=== PATIENT | female | born 1935 ===

== ENCOUNTER 2021-03-13 08:27 | Outpatient (REF) | payer MEDICARE, SELFPAY ==
--- NOTE | ~2021-03-13 | US_ITS ---
EXAMINATION: US EXTRACRANIAL CAROTID DUPLEX, BILATERAL CLINICAL INFORMATION: This is an 85-year-old female with carotid bruit. Carotid artery disease. COMPARISON: None TECHNIQUE: Real-time ultrasound and Doppler techniques (integrating B-mode 2-D vascular images, Doppler spectral analysis and color-flow Doppler imaging) were utilized to interrogate the extracranial carotid arteries, the vertebral arteries and proximal subclavian arteries bilaterally. The degree of stenosis is determined by criteria similar to NASCET. FINDINGS: Right Side: 1. There is minimal atherosclerotic plaque seen in the bifurcation/proximal ICA region. 2. The common carotid artery PSV proximally is 99 cm/s and distally 75 cm/s. 3. The proximal internal carotid artery velocities are 70 cm/s systolic and 23 cm/s diastolic. 4. The proximal external carotid artery PSV is 141 cm/s. 5. The vertebral artery shows antegrade flow. 6. The subclavian artery waveforms are normal. Left Side: 1. There is minimal atherosclerotic plaque seen in the bifurcation/proximal ICA region. 2. The common carotid artery PSV proximally is 86 cm/s and distally 78 cm/s. 3. The proximal internal carotid artery velocities are 52 cm/s systolic and 16 cm/s diastolic. 4. The proximal external carotid artery PSV is 98 cm/s. 5. The vertebral artery shows antegrade flow. 6. The subclavian artery waveforms are normal. An arrhythmia was present during the duplex portion of the study. US/US carotid duplex BI IMPRESSION: 1. RIGHT: Minimal, non-hemodynamically significant stenosis of the proximal right internal carotid artery corresponding to a 0-49% stenosis by velocity criteria. 2. LEFT: Minimal, non-hemodynamically significant stenosis of the proximal left internal carotid artery corresponding to a 0-49% stenosis by velocity criteria. 3. An arrhythmia was present during the duplex portion of the study.
== END 2021-03-13 08:28 | disposition home or self-care (01) ==
LOC: HO.HMGCX 08:27
PROVIDERS: PCP Internal Medicine; Visit Provider Internal Medicine
DX: R09.89 Other specified symptoms and signs involving the circulatory and respiratory systems (principal)
CPT/HCPCS: 93880

== ENCOUNTER 2021-09-18 07:55 | Outpatient (REF) | payer MEDICARE, MEDICAID, SELFPAY ==
[2021-09-18 11:42] LABS: Appearance Urine CLEAR; Color Urine YELLOW; Glucose Urine UA NEG (NEG); Leukocyte Esterase Urine TRACE (NEG); Nitrite Urine NEG (NEG); PH 5.5 (5.0-8.0); Specific Gravity - Urine >= 1.030 (1.005-1.025); Urine Blood NEG (NEG); Urine Ketones NEG (NEG); Urine Protein NEG (NEG-TRACE)
[2021-09-18 11:56] LABS: Squamous Epithelial Cell Urine 1+ /LPF
[2021-09-18 11:57] LABS: Bacteria Urine TRACE /LPF; Mucus Urine TRACE /LPF
== END 2021-09-18 07:56 | disposition home or self-care (01) ==
LOC: HO.HMGCLDS 07:55
PROVIDERS: PCP Internal Medicine; Visit Provider Nurse Practitioner Family
DX: R10.9 Unspecified abdominal pain (principal)
CPT/HCPCS: 81001; 87086

== ENCOUNTER 2021-10-11 15:10 | Outpatient (REF) | payer MEDICARE, MEDICAID, SELFPAY ==
[2021-10-11 16:50] LABS: Appearance Urine CLEAR; Color Urine YELLOW; Glucose Urine UA NEG (NEG); Leukocyte Esterase Urine 2+ (NEG); Nitrite Urine NEG (NEG); Specific Gravity - Urine 1.015 (1.005-1.025); UACC Culture Trigger YES; Urine Blood NEG (NEG); Urine Ketones NEG (NEG); Urine Protein NEG (NEG-TRACE)
[2021-10-11 16:58] LABS: Bacteria Urine 1+ /LPF; RBC Urine 0 /HPF (0); Squamous Epithelial Cell Urine 1+ /LPF
[2021-10-11 17:14] LABS: Alanine Aminotransferase 16 U/L (0-31); Alkaline Phosphatase 88 U/L (39-117); Anion Gap 12 (12-20); Aspartate Amino Transferase 23 U/L (5-31); Bilirubin Total 0.4 mg/dL (0.0-1.0); Blood Urea Nitrogen 35 mg/dL (9-16); Carbon Dioxide 29 mmol/L (22-29); Chloride 104 mmol/L (96-108); Estimated Glomerular Filt Rate 37; Glucose Random 98 mg/dL (60-115); Potassium 3.7 mmol/L (3.3-5.1); Sodium 141 mmol/L (135-145); Total Protein 7.1 g/dL (6.5-8.0)
== END 2021-10-11 15:11 | disposition home or self-care (01) ==
LOC: HO.HMGCLDS 15:10
PROVIDERS: PCP Internal Medicine; Visit Provider Internal Medicine
DX: I12.9 Hypertensive chronic kidney disease with stage 1 through stage 4 chronic kidney disease, or unspecified chronic kidney disease (principal); N18.30 Chronic kidney disease, stage 3 unspecified; R30.0 Dysuria
CPT/HCPCS: 36415; 80053; 81001; 87086

== ENCOUNTER 2021-11-28 14:26 | Outpatient (REF) | payer MEDICARE, MEDICAID, SELFPAY ==
--- NOTE | ~2021-11-28 | XR_ITS ---
EXAMINATION: XR HAND, RIGHT XR HAND, LEFT CLINICAL INFORMATION: Bilateral hand pain. COMPARISON: None TECHNIQUE: Each hand is imaged in 3 views. There are total of 6 views. FINDINGS: Right: There is no fracture, dislocation, destructive process. The ulnar variance is neutral. The carpus shows prominent osteoarthritic changes first carpometacarpal joint. There is chondrocalcinosis in the region of the triangular fibrocartilage and lunotriquetral ligament. No erosive changes. MCP joints show narrowing without erosive change first, second, third, and fifth joints with osteophytes. Hyperextension present at thumb. Periarticular soft tissue mineralization radial side second MTP. The interphalangeal joints show osteoarthritic changes greatest index finger DIP and index and third finger PIP joints. Left: There is no fracture, dislocation, destructive process. The ulnar variance is neutral. The carpus shows prominent osteoarthritic changes first carpometacarpal joint. There is chondrocalcinosis in the region of the triangular fibrocartilage and lunotriquetral ligament. No erosive changes. MCP joints show narrowing without erosive change first, second, third, and fifth joints with osteophytes. Hyperextension present at thumb. Periarticular soft tissue mineralization radial side second MTP. The interphalangeal joints show osteoarthritic changes greatest index and third finger DIP joint and moderate degenerative change PIP joints.. XR/XR hand RT min 3V IMPRESSION: 1. Bilateral chondrocalcinosis triangular fibrocartilage and lunotriquetral ligament. 2. Bilateral prominent osteoarthritic changes first carpometacarpal joint. 3. Variable degenerative changes bilateral MCP and interphalangeal joints.
--- NOTE | ~2021-11-28 | XR_ITS ---
EXAMINATION: XR HAND, RIGHT XR HAND, LEFT CLINICAL INFORMATION: Bilateral hand pain. COMPARISON: None TECHNIQUE: Each hand is imaged in 3 views. There are total of 6 views. FINDINGS: Right: There is no fracture, dislocation, destructive process. The ulnar variance is neutral. The carpus shows prominent osteoarthritic changes first carpometacarpal joint. There is chondrocalcinosis in the region of the triangular fibrocartilage and lunotriquetral ligament. No erosive changes. MCP joints show narrowing without erosive change first, second, third, and fifth joints with osteophytes. Hyperextension present at thumb. Periarticular soft tissue mineralization radial side second MTP. The interphalangeal joints show osteoarthritic changes greatest index finger DIP and index and third finger PIP joints. Left: There is no fracture, dislocation, destructive process. The ulnar variance is neutral. The carpus shows prominent osteoarthritic changes first carpometacarpal joint. There is chondrocalcinosis in the region of the triangular fibrocartilage and lunotriquetral ligament. No erosive changes. MCP joints show narrowing without erosive change first, second, third, and fifth joints with osteophytes. Hyperextension present at thumb. Periarticular soft tissue mineralization radial side second MTP. The interphalangeal joints show osteoarthritic changes greatest index and third finger DIP joint and moderate degenerative change PIP joints.. XR/XR hand LT min 3V IMPRESSION: 1. Bilateral chondrocalcinosis triangular fibrocartilage and lunotriquetral ligament. 2. Bilateral prominent osteoarthritic changes first carpometacarpal joint. 3. Variable degenerative changes bilateral MCP and interphalangeal joints.
== END 2021-11-28 14:27 | disposition home or self-care (01) ==
LOC: HO.HMGCX 14:26
PROVIDERS: PCP Internal Medicine; Visit Provider Internal Medicine
DX: M79.641 Pain in right hand (principal); M79.642 Pain in left hand
CPT/HCPCS: 73130

== ENCOUNTER 2022-01-31 11:23 | Outpatient (REF) | payer MEDICARE, MEDICAID, SELFPAY ==
--- NOTE | 2022-01-31 11:27 | EMG_ITS ---
This is an 86-year-old woman with a history of bilateral hand numbness. PHYSICAL EXAMINATION: On examination, she has flattening of the thenar eminences and decreased sensation in the median nerve distribution. IMPRESSION: Carpal tunnel syndrome. Nerve conduction EMG study: Severe carpal tunnel syndrome on the left. [id number] carpal tunnel syndrome on the right. EMG of the left C7-T1 innervated muscles consistent with chronic left median neuropathy. MD JACY Perez/DENIA / [id number]
== END 2022-01-31 11:24 | disposition home or self-care (01) ==
LOC: HO.NEURO 11:23
PROVIDERS: PCP Internal Medicine; Visit Provider Internal Medicine
DX: M79.641 Pain in right hand (principal); M79.642 Pain in left hand
CPT/HCPCS: 95885; 95913

== ENCOUNTER → 2022-04-01 11:55 | Outpatient (BNVA) | payer MEDICARE, MEDICAID, SELFPAY | PROVIDERS: PCP Internal Medicine; Visit Provider Orthopaedic Surgery | DX: G56.03 Carpal tunnel syndrome, bilateral upper limbs (principal) | CPT/HCPCS: 99202 ==

== ENCOUNTER 2022-06-23 07:52 | Day surgery (SDC) | payer OTHER, MEDICAID, SELFPAY ==
[2022-06-23 08:16] VITALS: BP 140/58; PULSE 60; RESP 18; TEMP 36.6; O2SAT 98; BMI 35.9
--- NOTE | 2022-06-23 09:34 | MHC.SHP ---
Pre-Procedural Eval Section A Date of Service: 06/23/22 The patient is an INPATIENT: No Changes since office visit: No Cold of Flu in the past 2 weeks, No New Medical Problems, No Changes in Medication and No Patient answered all questions The History & Physical has been completed within 30 days and I have reviewed it.: Yes Section B Chief Complaint: Carpal tunnel syndrome, left upper limb Allergies: Allergies Allergy/AdvReac Type Severity Reaction Status Date / Time aspirin Allergy Unknown unknown Verified 04/01/22 12:25 Plan I have reviewed the history and physical and performed a pertinent physical examination on my patient. No changes have occurred unless specified.
--- NOTE | 2022-06-23 09:35 | W.PM.OPN ---
Operative Note Operative Note Date of Service: 06/23/22 Narrative: Preop diagnosis: 1. left Carpal tunnel syndrome Postop diagnosis: same Procedure: 1. left Carpal tunnel release Surgeon: Nuvia Van MD Anesthesia: local block using 1% lidocaine with epinephrine Findings: Thickened transverse carpal ligament. EBL: Less than 5 mL Specimens: None Complications: None Disposition: Brought to recovery room in stable condition Plan: Follow-up for 10-14 days for wound check and suture removal Indications: The patient is 86 years old, with left carpal tunnel syndrome that has been unresponsive to nonoperative management. The risks and benefits of operative treatment including but not limited to risk of damage to blood vessels, nerves, tendons, infection, persistent pain, persistent symptoms, or possible need for additional surgery were discussed with the patient and the patient wishes to proceed with surgery. Procedure: Once consent was obtained a local block was performed using a combination of 1% lidocaine with epinephrine. The patient was then brought back to the operating suite and placed on the operative table in supine position. A tourniquet was applied to the proximal aspect of the left upper extremity and the limb was prepped and draped in a standard surgical fashion. Once assured that we had a good block, a 2.0 cm longitudinal incision was made centered over the carpal tunnel. The incision was made through the skin to the subcutaneous tissues using a #15 blade. Dissection was made down to the level of the transverse carpal ligament with care being taken to protect the palmar cutaneous nerve. Once the transverse carpal ligament was clearly visualized, a longitudinal incision was made in the transverse carpal ligament 1st using a #15 blade, then using tenotomy scissors under direct visualization. Care was taken to look for and protect the motor branch of the median nerve when seen in this area. Once satisfied with our carpal tunnel release the wound was copiously irrigated with normal saline and hemostasis was obtained with a brief period of local pressure. The skin edges were reapproximated with some 5.0 nylon suture material and a sterile dressing was applied. The patient appears to have tolerated the procedure well and with no complications. All digits were well vascularized at the conclusion of the case.
[2022-06-23 10:38] VITALS: BP 138/83; PULSE 51; RESP 18; TEMP 36.7; O2SAT 98
== END 2022-06-23 10:41 ==
LOC: HO.SSS 07:52
PROVIDERS: PCP Internal Medicine; Visit Provider Orthopaedic Surgery
PROC: (CPT 64721; principal; 2022-06-23 09:10)
DX: G56.02 Carpal tunnel syndrome, left upper limb (principal); R20.0 Anesthesia of skin; I12.9 Hypertensive chronic kidney disease with stage 1 through stage 4 chronic kidney disease, or unspecified chronic kidney disease; N18.30 Chronic kidney disease, stage 3 unspecified; E78.5 Hyperlipidemia, unspecified; R09.89 Other specified symptoms and signs involving the circulatory and respiratory systems; E55.9 Vitamin D deficiency, unspecified; R42 Dizziness and giddiness; Z79.899 Other long term (current) drug therapy; Z88.8 Allergy status to other drugs, medicaments and biological substances; Z96.659 Presence of unspecified artificial knee joint
CPT/HCPCS: 64721; J0171

== ENCOUNTER 2022-09-15 10:13 | Day surgery (SDC) | payer OTHER, SELFPAY ==
--- NOTE | 2022-09-15 08:02 | W.PM.OPN ---
Operative Note Operative Note Date of Service: 09/15/22 Narrative: Preop diagnosis: 1. right Carpal tunnel syndrome Postop diagnosis: same Procedure: 1. right Carpal tunnel release Surgeon: Nuvia Van MD Anesthesia: local block using 1% lidocaine with epinephrine Findings: Thickened transverse carpal ligament. EBL: Less than 5 mL Specimens: None Complications: None Disposition: Brought to recovery room in stable condition Plan: Follow-up for 10-14 days for wound check and suture removal Indications: The patient is 87 years old, with right carpal tunnel syndrome that has been unresponsive to nonoperative management. The risks and benefits of operative treatment including but not limited to risk of damage to blood vessels, nerves, tendons, infection, persistent pain, persistent symptoms, or possible need for additional surgery were discussed with the patient and the patient wishes to proceed with surgery. Procedure: Once consent was obtained a local block was performed using a combination of 1% lidocaine with epinephrine. The patient was then brought back to the operating suite and placed on the operative table in supine position. A tourniquet was applied to the proximal aspect of the right upper extremity and the limb was prepped and draped in a standard surgical fashion. Once assured that we had a good block, a 2.0 cm longitudinal incision was made centered over the carpal tunnel. The incision was made through the skin to the subcutaneous tissues using a #15 blade. Dissection was made down to the level of the transverse carpal ligament with care being taken to protect the palmar cutaneous nerve. Once the transverse carpal ligament was clearly visualized, a longitudinal incision was made in the transverse carpal ligament 1st using a #15 blade, then using tenotomy scissors under direct visualization. Care was taken to look for and protect the motor branch of the median nerve when seen in this area. Once satisfied with our carpal tunnel release the wound was copiously irrigated with normal saline and hemostasis was obtained with a brief period of local pressure. The skin edges were reapproximated with some 5.0 nylon suture material and a sterile dressing was applied. The patient appears to have tolerated the procedure well and with no complications. All digits were well vascularized at the conclusion of the case.
[2022-09-15 10:23] VITALS: BMI 36.1
[2022-09-15 10:30] VITALS: BP 161/56; PULSE 53; RESP 16; TEMP 36.3; O2SAT 100
--- NOTE | 2022-09-15 11:17 | MHC.SHP ---
Pre-Procedural Eval Section A Date of Service: 09/15/22 The patient is an INPATIENT: No Changes since office visit: No Cold of Flu in the past 2 weeks, No New Medical Problems, No Changes in Medication and No Patient answered all questions The History & Physical has been completed within 30 days and I have reviewed it.: Yes Section B Chief Complaint: Carpal tunnel syndrome, right upper limb Allergies: Allergies Allergy/AdvReac Type Severity Reaction Status Date / Time aspirin Allergy Unknown unknown Verified 09/15/22 10:23 Plan I have reviewed the history and physical and performed a pertinent physical examination on my patient. No changes have occurred unless specified.
[2022-09-15 12:04] VITALS: BP 148/69; PULSE 86; RESP 18; O2SAT 96
== END 2022-09-15 12:19 | disposition home or self-care (01) ==
PROVIDERS: PCP Internal Medicine; Visit Provider Orthopaedic Surgery
PROC: (CPT 64721; principal; 2022-09-15 11:10)
DX: G56.01 Carpal tunnel syndrome, right upper limb (principal); I12.9 Hypertensive chronic kidney disease with stage 1 through stage 4 chronic kidney disease, or unspecified chronic kidney disease; N18.30 Chronic kidney disease, stage 3 unspecified; E78.5 Hyperlipidemia, unspecified; R42 Dizziness and giddiness; E55.9 Vitamin D deficiency, unspecified
CPT/HCPCS: 64721; J0171

== ENCOUNTER 2023-10-29 08:10 | Outpatient (AMB) | payer OTHER, SELFPAY ==
--- NOTE | 2023-10-29 08:28 | MHC.PC.OV ---
Vital Signs 10/29/23 08:29 Height 5 ft Weight 189 lb BMI 36.9 BP 126/72 Blood Pressure Location Lt brachial Position Sitting Pulse 64 Pulse Source Pulse Oximeter Pulse Oximetry (%) 95 Oxygen Delivery Method Room Air Intake Visit Reasons: Annual Physical Intake Note: Pt is here today for PE. Allergies aspirin Allergy (Unknown, Verified 10/29/23 08:36) Facial Swelling Medication List - Last Reconciled 10/29/23 by Penny Orellana MD glucosamine HCl 1,000 mg PO DAILY hydrochlorothiazide 25 mg PO DAILY hydrocodone-acetaminophen 5-325 mg 1 tab PO Q4-6H PRN irbesartan 300 mg PO DAILY meclizine 25 mg PO BID meloxicam 7.5 mg PO BID metoprolol succinate ER 100 mg PO DAILY oxybutynin chloride ER 5 mg PO DAILY Tobacco use date assessed: 10/29/23 Fall risk assessment: No Falls in past year Last assessed Fall Risk: 10/29/23 Dental Screening Dental Screen Date: 10/29/23 Did you have a dental visit in the last 12 months?: Yes Did you have a dental problem in the last 6 months where you did not have access to dental care?: No Was dental information given to patient?: Patient has dentist HPI Annual Physical HPI Details Patient presents for physical. Hypertension is controlled on current medications. Patient reports left shorter pain on and off and decreased range of motion for the last few months. She denies any injury. Patient is sitting for few hours daily in the armchair, supporting herself on the left arm. [facility] Medical History (Updated 10/29/23 @ 09:00 by Penny Orellana MD) Bilateral hand pain Dysuria CKD (chronic kidney disease) stage 3, GFR 30-59 ml/min Bilateral carotid bruits Subconjunctival bleed Vertigo HTN (hypertension) Osteoarthritis Hyperlipidemia Vitamin D deficiency Hyperparathyroidism Goiter Surgical History H/O parathyroidectomy History of knee replacement Family History Father No problems noted. Mother No problems noted. Social History Housing: House Alcohol intake: never Patient Tobacco Use Status: Never used Tobacco e-Cigarette/Vaping Use: Never Used Current occupational status: retired Cognitive needs: No Hearing needs: No Vision needs: Yes Questionnaire PHQ-9 Over the last 2 weeks, how often have you been bothered by any of the following problems? 1. Little interest or pleasure in doing things: not at all 2. Feeling down, depressed, or hopeless: not at all 3. Trouble falling or staying asleep, or sleeping too much: not at all 4. Feeling tired or having little energy: not at all 5. Poor appetite or overeating: not at all 6. Feeling bad about yourself - or that you are a failure or have let yourself or your family down: not at all 7. Trouble concentrating on things, such as reading the newspaper or watching television: not at all 8. Moving or speaking so slowly that other people could have noticed. Or the opposite - being so fidgety or restless that you have been moving around a lot more than usual: not at all 9. Thoughts that you would be better off or of hurting yourself in some way: not at all Total score: 0 Depression Screening Interpretation: Negative Depression Screening Done: Yes Source: Developed by Drs. Cristian Patiño, Edwige Sanchez, Tyson Herman and colleagues, with an educational hemanth from [employer]. Thrive Questionnaire Date Thrive assessed: 10/29/23 I am a: Patient What is your living situation today?: I have a steady place to live Within the past 12 months, did the food you bought not last and you didn't have the money to get more?: Never true Within the past 12 months, did you worry whether your food would run out before you got money to buy more?: Never true Do you have trouble paying for medicines?: No Do you have trouble getting transportation to medical appointments?: No Do you have trouble paying your heating and electricity bill?: No Do you have trouble taking care of your child, family member or friend?: No Do you have trouble with day-to-day activities such as bathing, preparing meals, shopping, managing finances, etc.?: No Are you currently unemployed and looking for a job?: No Are you interested in more education?: No Please select the resources that you would like help with: None AUDIT C Alcohol Use Questionnaire (AUDIT-C) 1. How often do you have a drink containing alcohol?: Never 3. How often do you have six or more drinks on one occasion?: Never Total Score: 0 PAMELLA-7 AMB Questionnaire PAMELLA-7 Date PAMELLA - 7 assessed: 10/29/23 Feeling nervous, anxious, or on edge: 0 = Not at all Not being able to stop or control worryin = Not at all Worrying too much about different things: 0 = Not at all Trouble relaxin = Not at all Being so restless that it is hard to sit still: 0 = Not at all Becoming easily annoyed or irritable: 0 = Not at all Feeling afraid as if something awful might happen: 0 = Not at all Total PAMELLA-7 score (0-4 normal; 5-9 mild; 10-14 moderate; 15-21 severe): 0 Source: Developed by Drs. Cristian Patiño, Edwige Sanchez, Tyson Herman and colleagues, with an educational hemanth from [employer]. Review of Systems Const All systems reviewed & are unremarkable except as noted in HPI and below Reports no additional complaints Eyes Reports no additional complaints ENT Reports no additional complaints Card Reports no additional complaints Resp Reports no additional complaints GI Reports no additional complaints Reports no additional complaints Physical exam (Primary Care) Vital Signs: Last Vital Signs Pulse 64 10/29/23 08:29 BP 126/72 10/29/23 08:29 Pulse Ox 95 10/29/23 08:29 Oxygen Delivery Method Room Air 10/29/23 08:29 BMI result Body Mass Index 36.9 Tobacco/Smoking Status: Tobacco use Status Tobacco use date assessed 10/29/23 10/29/23 08:40 Patient Tobacco Use Status Never used Tobacco 10/29/23 08:40 e-Cigarette/Vaping Use Never Used 10/29/23 08:28 PHQ-9: PHQ-9 Score PHQ-9: Total score 0 10/29/23 08:43 Depression Screening Interpretation: Negative Thrive Assessment: Date of Thrive Assessment Date Thrive assessed 10/29/23 10/29/23 08:43 Const General: no acute distress HENMT Head: Yes normal to inspection Face and sinus: Yes normal facial exam Throat: Yes posterior oropharynx normal Eyes Visual Barfield: normal visual barfield by confrontation Neck Neck: Yes no lymphadenopathy and Yes supple Resp Effort & Inspection: normal respiratory effort Auscultation: clear to auscultation bilaterally Cardio Rhythm: regular rhythm Heart sounds: S1 normal heart sound present and S2 normal heart sound present GI Inspection: Yes normal to inspection Palpation (GI): Soft to palpation Percussion: Yes normal to percussion Auscultation: normal bowel sounds Extrem Other: 2+ nonpitting edema bilaterally in lower extremities, decreased range of motion and crepitus in the left shoulder Assessment and Plan Assessment & Plan (1) Shoulder pain, left: Code(s): M25.512 - Pain in left shoulder Plan: Refer for physical therapy (2) HTN (hypertension): Code(s): I10 - Essential (primary) hypertension Plan: Continue current medications (3) Hyperlipidemia: Code(s): E78.5 - Hyperlipidemia, unspecified Plan: Continue low-cholesterol diet, patient will return for fasting labs (4) Annual physical exam: Code(s): Z00.00 - Encounter for general adult medical examination without abnormal findings Plan: Well-balanced diet regular physical activity discussed with the patient (5) Vitamin D deficiency: Code(s): E55.9 - Vitamin D deficiency, unspecified Plan: Check vitamin-D level Orders: Orders TSH reflex Free T4 Today E78.5 - Hyperlipidemia, unspecified, I10 - Essential (primary) hypertension, Z00.00 - Encounter for general adult medical examination without abnormal findings Complete Blood Count Auto Diff Today E78.5 - Hyperlipidemia, unspecified, I10 - Essential (primary) hypertension, Z00.00 - Encounter for general adult medical examination without abnormal findings Lipid Panel Today E78.5 - Hyperlipidemia, unspecified, I10 - Essential (primary) hypertension, Z00.00 - Encounter for general adult medical examination without abnormal findings Comprehensive [place]. Panel Fast Today E78.5 - Hyperlipidemia, unspecified, I10 - Essential (primary) hypertension, Z00.00 - Encounter for general adult medical examination without abnormal findings PT Evaluation and Treatment Today E78.5 - Hyperlipidemia, unspecified, I10 - Essential (primary) hypertension, M25.512 - Pain in left shoulder, Z00.00 - Encounter for general adult medical examination without abnormal findings Vitamin D 25-OH Total Today E55.9 - Vitamin D deficiency, unspecified Medications: Discontinued hydrocodone-acetaminophen 5-325 mg Partial Fill upon patient request. Discontinued Reason: Doctor's Order 1 tab PO Q4-6H PRN 5 tabs 0RF pain Coding Level of Care Code Est Pt Prev Care >65y(01607) Diagnoses Shoulder pain, left M25.512 HTN (hypertension) I10 Hyperlipidemia E78.5 Annual physical exam Z00.00 Vitamin D deficiency E55.9
[2023-10-29 08:29] VITALS: BP 126/72; PULSE 64; O2SAT 95; BMI 36.9
== END 2023-10-29 09:07 | disposition home or self-care (01) ==
PROVIDERS: PCP Internal Medicine; Visit Provider Internal Medicine
DX: Z00.00 Encounter for general adult medical examination without abnormal findings (principal); M25.512 Pain in left shoulder; I10 Essential (primary) hypertension; E78.5 Hyperlipidemia, unspecified; E55.9 Vitamin D deficiency, unspecified
CPT/HCPCS: 99397

== ENCOUNTER 2023-10-31 07:19 | Outpatient (REF) | payer OTHER, SELFPAY | END 2023-10-31 07:20 | disposition home or self-care (01) | LOC: HO.HMGCLDS 07:19 | PROVIDERS: PCP Internal Medicine; Visit Provider Internal Medicine | DX: Z00.00 Encounter for general adult medical examination without abnormal findings (principal); E78.5 Hyperlipidemia, unspecified; I10 Essential (primary) hypertension; E55.9 Vitamin D deficiency, unspecified | CPT/HCPCS: 36415; 80053; 80061; 82306; 84439; 84443; 85025 ==

== ENCOUNTER 2023-11-12 12:46 | Outpatient (RCR) | payer OTHER, SELFPAY ==
--- NOTE | 2023-11-12 14:15 | MHC.PT.EP ---
[facility] [place] Office [place] Office [place] Office [address] Roger Savage [address] [phone] F: [phone] F: [phone] F: [phone] F: [phone] Physical Therapy Plan of Care Date of Evaluation: 11/12/23 Date of Surgery: Diagnosis: This is an 88 yo female presenting to skilled PT with a script for L shoulder pain. Assessment: This is an 88 yo female presenting to skilled PT with a script for L shoulder pain. Patient reporting L shoulder pain that has been increasing for about a year ago, no injury noted. She reports that she does not get pain at rest/only increases with movement or use. Pain is described as hard to lift. Patient is RHD, takes meloxicam for pain and has not had any imaging of the shoulder. She reports I with LB ADLs (adapts for UB using a bra that clasps in the front, using her R hand primarily and gets assist for harder UB tasks such as clasps on necklaces), makes her own breakfast and enjoys puzzle making, pippa, walking and going to the [facility] center for chair exercises 3x/wk. Assessment reveals pain that ranges from up to a 4/10 at the worst. Patient demos decreased L shoulder and cervical gross ROM, strength of B shoulder's, TTP at GHJ joint line, UT and impaired posture with forward head and rounded shoulders. Based on functional limitations, impaired QOL and pain tolerance patient is a good candidate for skilled PT 2x/wk for 4wks. Frequency and Duration: The patient will be seen 2x/wk for 4wks Short Term Goals: (In 2 weeks) Demo I with HEP Improve shoulder AROM by at least 10 degs Demo proper scapular recruitment with appropriate shoulder strengthening exercises Crew Lead Goals: (in 4 wks) Improve shoulder nonpainful AROM to almost near equal B Demo at least 1 grade improvement in MMT for shoulder Improve SPADI by at least 10 points Improve overall functional QOL by at least 50% Treatment Plan: Modalities to reduce pain, spasms and effusion. Manual therapy to restore motion and function. Therapeutic exercise to improve strength and flexibility. Neuromuscular re-education for posture and balance. Therapeutic activities to return to functional activities of daily living. Electronically signed by: Anya Mcguire PT Please sign and return to therapist. Thank you for your referral.
--- NOTE | 2023-12-17 12:51 | MHC.PT.DC ---
[facility] [place] Office [place] Office [place] Office [address] Roger Savage [address] [phone] F: [phone] F: [phone] F: [phone] F: [phone] Physical Therapy Discharge Report Diagnosis: This is an 88 yo female presenting to skilled PT with a script for L shoulder pain. Date of Surgery: Date of Evaluation: 11/12/23 Date of Discharge: 12/17/23 Treatments to Date: 1 Cancellations to Date: 0 No Shows to Date: 0 Discharge Status: Discharge Summary: This is an 88 yo female presenting to skilled PT with a script for L shoulder pain. Patient reporting L shoulder pain that has been increasing for about a year ago, no injury noted. She reports that she does not get pain at rest/only increases with movement or use. Pain is described as hard to lift. Patient is RHD, takes meloxicam for pain and has not had any imaging of the shoulder. She reports I with LB ADLs (adapts for UB using a bra that clasps in the front, using her R hand primarily and gets assist for harder UB tasks such as clasps on necklaces), makes her own breakfast and enjoys puzzle making, pippa, walking and going to the senior center for chair exercises 3x/wk. Assessment reveals pain that ranges from up to a 4/10 at the worst. Patient demos decreased L shoulder and cervical gross ROM, strength of B shoulder's, TTP at GHJ joint line, UT and impaired posture with forward head and rounded shoulders. Based on functional limitations, impaired QOL and pain tolerance patient is a good candidate for skilled PT 2x/wk for 4wks. Patient decided to do home PT, HEP was provided. Electronically signed by: Anya Mcguire, PT Please sign and return to therapist. Thank you for your referral.
== END 2023-12-17 12:51 | disposition home or self-care (01) ==
LOC: HO.PTCHIC 12:46
PROVIDERS: PCP Internal Medicine; Visit Provider Internal Medicine
DX: M25.512 Pain in left shoulder (principal)
CPT/HCPCS: 97110; 97162

== ENCOUNTER 2024-05-05 07:51 | Outpatient (AMB) | payer OTHER, SELFPAY ==
[2024-05-05 07:52] VITALS: BP 126/76; PULSE 63; O2SAT 97; BMI 36.5
--- NOTE | 2024-05-05 07:52 | A.OFFPC_ITS ---
Vital Signs 05/05/24 07:52 Height 5 ft Weight 187 lb BMI 36.5 BP 126/76 Blood Pressure Location Lt brachial Position Sitting Pulse 63 Pulse Source Pulse Oximeter Pulse Oximetry (%) 97 Oxygen Delivery Method Room Air Intake Visit Reasons: 6 Month follow up Intake Note: Pt is here today for 6 months follow up visit. Pt states that she has swollen lymph node on the R side. Allergies aspirin Allergy (Unknown, Verified 05/05/24 07:58) Facial Swelling Medication List - Last Reconciled 05/05/24 by Penny Orellana MD glucosamine HCl 1,000 mg PO DAILY hydrochlorothiazide 25 mg PO DAILY irbesartan 300 mg PO DAILY meclizine 25 mg PO BID meloxicam 7.5 mg PO BID metoprolol succinate ER 100 mg PO DAILY oxybutynin chloride ER 5 mg PO DAILY Tobacco use date assessed: 05/05/24 Fall risk assessment: No Falls in past year Last assessed Fall Risk: 05/05/24 Dental Screening Dental Screen Date: 05/05/24 Did you have a dental visit in the last 12 months?: Yes Did you have a dental problem in the last 6 months where you did not have access to dental care?: No Was dental information given to patient?: Patient has dentist HPI 6 Month follow up HPI Details Pt presents for f/u hypertension controlled on current medications. Patient reports chronic left lower extremity pain worse when sitting for long time or walking. [facility] Medical History Bilateral hand pain Dysuria CKD (chronic kidney disease) stage 3, GFR 30-59 ml/min Bilateral carotid bruits Subconjunctival bleed Vertigo HTN (hypertension) Osteoarthritis Hyperlipidemia Vitamin D deficiency Hyperparathyroidism Goiter Surgical History H/O parathyroidectomy History of knee replacement Family History Father No problems noted. Mother No problems noted. Social History Housing: House Alcohol intake: never Patient Tobacco Use Status: Never used Tobacco e-Cigarette/Vaping Use: Never Used service: No Current occupational status: retired Cognitive needs: No Hearing needs: No Vision needs: Yes Questionnaire Thrive Questionnaire Date Thrive assessed: 10/29/23 AUDIT C Alcohol Use Questionnaire (AUDIT-C) 1. How often do you have a drink containing alcohol?: Never 3. How often do you have six or more drinks on one occasion?: Never Total Score: 0 PAMELLA-7 AMB Questionnaire PAMELLA-7 Date PAMELLA - 7 assessed: 10/29/23 Source: Developed by Drs. Cristian Patiño, Edwige Sanchez, Tyson Herman and colleagues, with an educational hemanth from [employer]. Review of Systems Const All systems reviewed & are unremarkable except as noted in HPI and below Eyes Reports no additional complaints ENT Reports no additional complaints Card Reports no additional complaints Resp Reports no additional complaints GI Reports no additional complaints Reports no additional complaints Physical exam (Primary Care) Vital Signs: Last Vital Signs Pulse 63 05/05/24 07:52 BP 126/76 05/05/24 07:52 Pulse Ox 97 05/05/24 07:52 Oxygen Delivery Method Room Air 05/05/24 07:52 BMI result Body Mass Index 36.5 Tobacco/Smoking Status: Tobacco use Status Tobacco use date assessed 05/05/24 05/05/24 08:00 Patient Tobacco Use Status Never used Tobacco 05/05/24 07:54 e-Cigarette/Vaping Use Never Used 05/05/24 07:54 Thrive Assessment: Date of Thrive Assessment Date Thrive assessed 10/29/23 05/05/24 07:54 Const General: no acute distress HENMT Head: Yes normal to inspection Ears: hearing grossly normal bilaterally Face and sinus: Yes normal facial exam Mouth: Normal oral and palatal mucosa present Eyes General: appearance normal, both eyes and all related structures Neck Neck: Yes no lymphadenopathy Resp Effort & Inspection: normal respiratory effort Auscultation: clear to auscultation bilaterally Cardio Rhythm: regular rhythm Heart sounds: S1 normal heart sound present and S2 normal heart sound present GI Inspection: Yes normal to inspection Palpation (GI): Soft to palpation Percussion: Yes normal to percussion Auscultation: normal bowel sounds Assessment and Plan Assessment & Plan (1) HTN (hypertension): Code(s): I10 - Essential (primary) hypertension Plan: Continue current medications (2) CKD (chronic kidney disease) stage 3, GFR 30-59 ml/min: Code(s): N18.30 - Chronic kidney disease, stage 3 unspecified Plan: Avoid nephrotoxins check comprehensive panel today (3) Radiculopathy: Code(s): M54.10 - Radiculopathy, site unspecified Qualifiers: Spinal region: unspecified Qualified Code(s): M54.10 - Radiculopathy, site unspecified Plan: For chronic sciatica patient was advised to continue regular lower back exercises. PT was recommended but patient declined Orders: Orders Comprehensive Met. Panel Today I10 - Essential (primary) hypertension, N18.30 - Chronic kidney disease, stage 3 unspecified Complete Blood Count Auto Diff Today I10 - Essential (primary) hypertension, N18.30 - Chronic kidney disease, stage 3 unspecified Hemoglobin A1c Today I10 - Essential (primary) hypertension, N18.30 - Chronic kidney disease, stage 3 unspecified Coding Level of Care Code Est Pt Level 4 (35039) Diagnoses HTN (hypertension) I10 CKD (chronic kidney disease) stage 3, GFR 30-59 ml/min N18.30 Radiculopathy, unspecified spinal region M54.10 Spinal region: unspecified
== END 2024-05-05 09:14 | disposition home or self-care (01) ==
PROVIDERS: PCP Internal Medicine; Visit Provider Internal Medicine
DX: I12.9 Hypertensive chronic kidney disease with stage 1 through stage 4 chronic kidney disease, or unspecified chronic kidney disease (principal); N18.30 Chronic kidney disease, stage 3 unspecified; M54.10 Radiculopathy, site unspecified
CPT/HCPCS: 99214

== ENCOUNTER 2024-06-09 06:41 | Outpatient (REF) | payer OTHER, SELFPAY ==
[2024-06-09 09:56] LABS: MANUAL DIFF FLAG NO
[2024-06-09 10:07] LABS: Basophils Absolute Auto 0.1 X10*3/uL (0.0-0.2); Basophils Percent Auto 1.2 % (0-2); Eosinophils Absolute Auto 0.2 X10*3/uL (0.0-0.4); Eosinophils Percent Auto 3.5 % (0-4); Hematocrit 34.5 % (37.0-47.0); Hemoglobin 11.5 g/dl (12.0-16.0); Imm Gran Abs Auto 0.02 X10*3/uL (0.00-0.03); Imm Gran Pct Auto 0.3 % (0.0-0.4); Lymphocytes Absolute Auto 1.6 X10*3/uL (1.2-4.9); Lymphocytes Percent Auto 26.8 % (20-40); Mean Corpuscular HGB Conc 33.3 g/dl (31.0-35.0); Mean Corpuscular Hemoglobin 31.3 pg (27.0-33.0); Mean Platelet Volume 9.4 fL (9.4-12.3); Monocytes Absolute Auto 0.6 X10*3/uL (0.1-1.2); Monocytes Percent Auto 9.4 % (2-11); Neutrophils Absolute Auto 3.5 x10*3/uL (2.0-8.3); Neutrophils Percent Auto 58.8 % (45-73); Platelet Count 201 X10*3/uL (160-400); Red Blood Count 3.67 X10*6/uL (4.20-5.50); Red Cell Distribution Width 11.8 % (11.0-16.0); White Blood Count 5.9 X10*3/uL (4.8-10.8)
[2024-06-09 10:14] LABS: Estimated Average Glucose 117 mg/dL; Hemoglobin A1c % 5.7 % (<6.0)
[2024-06-09 10:23] LABS: Alanine Aminotransferase 15 U/L (0-31); Albumin Level 3.7 g/dL (3.5-5.0); Alkaline Phosphatase 70 U/L (39-117); Anion Gap 13 (12-20); Aspartate Amino Transferase 19 U/L (5-31); Bilirubin Total 0.5 mg/dL (0.0-1.0); Blood Urea Nitrogen 36 mg/dL (9-16); Calcium 9.6 mg/dL (8.4-10.2); Carbon Dioxide 25 mmol/L (22-29); Chloride 108 mmol/L (96-108); Estimated Glomerular Filt Rate 32; Glucose Random 94 mg/dL (60-115); Potassium 4.5 mmol/L (3.3-5.1); Sodium 141 mmol/L (135-145); Total Protein 6.9 g/dL (6.5-8.0)
== END 2024-06-09 06:42 | disposition home or self-care (01) ==
LOC: HO.HMGCLDS 06:41
PROVIDERS: PCP Internal Medicine; Visit Provider Internal Medicine
DX: I12.9 Hypertensive chronic kidney disease with stage 1 through stage 4 chronic kidney disease, or unspecified chronic kidney disease (principal); N18.30 Chronic kidney disease, stage 3 unspecified; Z13.1 Encounter for screening for diabetes mellitus
CPT/HCPCS: 36415; 80053; 83036; 85025

== ENCOUNTER 2024-06-11 07:19 | Outpatient (REF) | payer OTHER, SELFPAY ==
[2024-06-11 11:20] LABS: Iron 105 mcg/dL (30-160); Percent Iron Saturation 42 % (15-50); Total Iron Binding Capacity 251 mcg/dL (228-428); Unsaturated Iron Binding 146 ug/dL
[2024-06-11 11:57] LABS: Folate 13.8 ng/mL (> or = 4.0); Vitamin B12 1153 pg/mL (200-900)
== END 2024-06-11 07:20 | disposition home or self-care (01) ==
LOC: HO.HMGCLDS 07:19
PROVIDERS: PCP Internal Medicine; Visit Provider Internal Medicine
DX: D64.9 Anemia, unspecified (principal)
CPT/HCPCS: 36415; 82607; 82746; 83540

== ENCOUNTER 2024-07-01 14:07 | Outpatient (REF) | payer OTHER, SELFPAY ==
[2024-07-01 16:33] LABS: Anion Gap 12 (12-20); Blood Urea Nitrogen 35 mg/dL (9-16); Calcium 10.2 mg/dL (8.4-10.2); Carbon Dioxide 27 mmol/L (22-29); Chloride 107 mmol/L (96-108); Estimated Glomerular Filt Rate 28; Glucose Random 140 mg/dL (60-115); Potassium 4.5 mmol/L (3.3-5.1); Sodium 141 mmol/L (135-145)
== END 2024-07-01 14:08 | disposition home or self-care (01) ==
LOC: HO.HMGCLDS 14:07
PROVIDERS: PCP Internal Medicine; Visit Provider Internal Medicine
DX: I10 Essential (primary) hypertension (principal)
CPT/HCPCS: 36415; 80048

== ENCOUNTER 2024-07-12 10:18 | Outpatient (AMB) | payer OTHER, SELFPAY ==
[2024-07-12 10:23] VITALS: BP 122/76; PULSE 88; O2SAT 97; BMI 35.7
--- NOTE | 2024-07-12 10:23 | A.OFFPC_ITS ---
Vital Signs 07/12/24 10:23 Height 5 ft Weight 183 lb BMI 35.7 BP 122/76 Blood Pressure Location Lt brachial Position Sitting Pulse 88 Pulse Source Pulse Oximeter Pulse Oximetry (%) 97 Oxygen Delivery Method Room Air Intake Visit Reasons: Edema, shoulder pain Intake Note: Pt is here today for a sick visit. Pt c/o edema and R shoulder pain. Allergies aspirin Allergy (Unknown, Verified 07/12/24 10:24) Facial Swelling Medication List - Last Reconciled 07/12/24 by Penny Orellana MD glucosamine HCl 1,000 mg PO DAILY hydrochlorothiazide 25 mg PO DAILY irbesartan 300 mg PO DAILY meclizine 25 mg PO BID metoprolol succinate ER 100 mg PO DAILY oxybutynin chloride ER 5 mg PO DAILY Tobacco use date assessed: 07/12/24 Dental Screening Dental Screen Date: 05/05/24 HPI Edema, shoulder pain HPI Details Patient presents for the follow-up of hypertension and osteoarthritis. Patient noticed some increased lower extremity swelling at the end of the day when sitting for long time. She denies chest pain shortness or breath palpitations PND or orthopnea PFSH Medical History Bilateral hand pain Dysuria CKD (chronic kidney disease) stage 3, GFR 30-59 ml/min Bilateral carotid bruits Subconjunctival bleed Vertigo HTN (hypertension) Osteoarthritis Hyperlipidemia Vitamin D deficiency Hyperparathyroidism Goiter Surgical History H/O parathyroidectomy History of knee replacement Family History Father No problems noted. Mother No problems noted. Social History Housing: House Alcohol intake: never Patient Tobacco Use Status: Never used Tobacco e-Cigarette/Vaping Use: Never Used service: No Current occupational status: retired Cognitive needs: No Hearing needs: No Vision needs: Yes Questionnaire Thrive Questionnaire Date Thrive assessed: 10/29/23 I am a: Patient What is your living situation today?: I have a steady place to live Within the past 12 months, did the food you bought not last and you didn't have the money to get more?: Never true Within the past 12 months, did you worry whether your food would run out before you got money to buy more?: Never true Do you have trouble paying for medicines?: No Do you have trouble getting transportation to medical appointments?: I choose not to answer this question Do you have trouble paying your heating and electricity bill?: I choose not to answer this question Do you have trouble taking care of your child, family member or friend?: I choose not to answer this question Do you have trouble with day-to-day activities such as bathing, preparing meals, shopping, managing finances, etc.?: I choose not to answer this question Are you interested in more education?: I choose not to answer this question Please select the resources that you would like help with: None Currently or been in a relationship where the following occur: I choose not to answer THRIVE Score: 0 AUDIT C Alcohol Use Questionnaire (AUDIT-C) 1. How often do you have a drink containing alcohol?: Never Total Score: 0 PAMELLA-7 AMB Questionnaire PAMELLA-7 Date PAMELLA - 7 assessed: 10/29/23 Feeling nervous, anxious, or on edge: 0 = Not at all Not being able to stop or control worryin = Not at all Worrying too much about different things: 0 = Not at all Trouble relaxin = Not at all Being so restless that it is hard to sit still: 0 = Not at all Source: Developed by Drs. Cristian Patiño, Edwige Sanchez, Tyson Herman and colleagues, with an educational hemanth from [employer]. Review of Systems Const All systems reviewed & are unremarkable except as noted in HPI and below Eyes Reports no additional complaints ENT Reports no additional complaints Card Reports no additional complaints Resp Reports no additional complaints GI Reports no additional complaints Reports no additional complaints Physical exam (Primary Care) Vital Signs: Last Vital Signs Pulse 88 07/12/24 10:23 BP 122/76 07/12/24 10:23 Pulse Ox 97 07/12/24 10:23 Oxygen Delivery Method Room Air 07/12/24 10:23 BMI result Body Mass Index 35.7 Tobacco/Smoking Status: Tobacco use Status Tobacco use date assessed 07/12/24 07/12/24 10:24 Patient Tobacco Use Status Never used Tobacco 07/12/24 10:24 e-Cigarette/Vaping Use Never Used 07/12/24 10:24 Thrive Assessment: Date of Thrive Assessment Date Thrive assessed 10/29/23 07/12/24 10:24 Currently or been in a relationship where the following occur: I choose not to answer Const General: no acute distress Eyes General: appearance normal, both eyes and all related structures Neck Neck: Yes supple Resp Effort & Inspection: normal respiratory effort Auscultation: clear to auscultation bilaterally Cardio Rhythm: abnormal rhythm irregularly irregular Heart sounds: S1 normal heart sound present and S2 normal heart sound present GI Inspection: Yes normal to inspection Palpation (GI): Soft to palpation Percussion: Yes normal to percussion Auscultation: normal bowel sounds Extrem Other: 1+ pitting edema bilaterally Assessment and Plan Assessment & Plan (1) CKD (chronic kidney disease) stage 3, GFR 30-59 ml/min: Code(s): N18.30 - Chronic kidney disease, stage 3 unspecified Plan: Avoid nephrotoxins monitor renal function (2) A-fib: Code(s): I48.91 - Unspecified atrial fibrillation Plan: EKG shown AFib with a heart rate of [address]-T changes. Obtain echo and Holter start Eliquis adjusted for low renal function at 2.5 twice a day. Patient will continue metoprolol, check TSH (3) Hyperglycemia: Code(s): R73.9 - Hyperglycemia, unspecified Plan: ADA diet discussed with the patient check A1c Orders: Orders CA echo transthoracic complete Today I48.91 - Unspecified atrial fibrillation, N18.30 - Chronic kidney disease, stage 3 unspecified ECG 3 day holter monitor Today I48.91 - Unspecified atrial fibrillation, N18.30 - Chronic kidney disease, stage 3 unspecified TSH reflex Free T4 Today I48.91 - Unspecified atrial fibrillation, N18.30 - Chronic kidney disease, stage 3 unspecified Hemoglobin A1c Today R73.9 - Hyperglycemia, unspecified Medications: New apixaban (Eliquis) 2.5 mg PO BID 180 tabs 1RF estradiol 0.01%(0.1mg/gram) pea size to urethra vaginally daily; 42.5 grams 3RF Coding Level of Care Code Est Pt Level 4 (53813) Diagnoses CKD (chronic kidney disease) stage 3, GFR 30-59 ml/min N18.30 A-fib I48.91 Hyperglycemia R73.9
== END 2024-07-12 15:50 | disposition home or self-care (01) ==
PROVIDERS: PCP Internal Medicine; Visit Provider Internal Medicine
DX: N18.30 Chronic kidney disease, stage 3 unspecified (principal); I48.91 Unspecified atrial fibrillation; R73.9 Hyperglycemia, unspecified

== ENCOUNTER 2024-07-12 11:38 | Outpatient (REF) | payer OTHER, SELFPAY ==
[2024-07-12 13:38] LABS: MANUAL DIFF FLAG NO
[2024-07-12 13:45] LABS: Appearance Urine Clear; Color Urine Yellow; Glucose Urine UA Negative (Negative); Leukocyte Esterase Urine Trace (Negative); Nitrite Urine Negative (Negative); Specific Gravity - Urine 1.015 (1.005-1.025); UMIC TRIGGER UA YES; Urine Blood Negative (Negative); Urine Ketones Negative (Negative); Urine Protein Negative (Neg-Trace)
[2024-07-12 13:46] LABS: Basophils Absolute Auto 0.1 X10*3/uL (0.0-0.2); Basophils Percent Auto 0.9 % (0-2); Eosinophils Absolute Auto 0.1 X10*3/uL (0.0-0.4); Hematocrit 39.2 % (37.0-47.0); Hemoglobin 13.1 g/dl (12.0-16.0); Imm Gran Abs Auto 0.02 X10*3/uL (0.00-0.03); Imm Gran Pct Auto 0.2 % (0.0-0.4); Lymphocytes Absolute Auto 2.2 X10*3/uL (1.2-4.9); Mean Corpuscular HGB Conc 33.4 g/dl (31.0-35.0); Mean Corpuscular Hemoglobin 31.6 pg (27.0-33.0); Mean Corpuscular Volume 94.5 fL (80.0-98.0); Mean Platelet Volume 9.4 fL (9.4-12.3); Monocytes Absolute Auto 0.5 X10*3/uL (0.1-1.2); Monocytes Percent Auto 6.3 % (2-11); Neutrophils Absolute Auto 5.2 x10*3/uL (2.0-8.3); Neutrophils Percent Auto 64.6 % (45-73); Platelet Count 252 X10*3/uL (160-400); Red Blood Count 4.15 X10*6/uL (4.20-5.50); White Blood Count 8.1 X10*3/uL (4.8-10.8)
[2024-07-12 13:49] LABS: Bacteria Urine None Seen (None Seen); Hyaline Casts Urine 0-2 /LPF (0-2); RBC Urine 0-2 /HPF (0-2); Squamous Epithelial Cell Urine 0-2 /HPF (0-2)
[2024-07-12 14:12] LABS: Estimated Average Glucose 111 mg/dL; Hemoglobin A1c % 5.5 % (<6.0)
[2024-07-12 14:40] LABS: Anion Gap 13 (12-20); Blood Urea Nitrogen 30 mg/dL (9-16); Calcium 10.2 mg/dL (8.4-10.2); Carbon Dioxide 28 mmol/L (22-29); Chloride 105 mmol/L (96-108); Estimated Glomerular Filt Rate 33; Glucose Random 112 mg/dL (60-115); Potassium 4.2 mmol/L (3.3-5.1); Sodium 142 mmol/L (135-145); TSH reflex Free T4 0.19 uIU/mL (0.32-4.0)
[2024-07-12 15:11] LABS: Free T4 (Free Thyroxine) 1.05 ng/dL (0.71-1.85)
== END 2024-07-12 11:39 | disposition home or self-care (01) ==
LOC: HO.HMGCLDS 11:38
PROVIDERS: PCP Internal Medicine; Visit Provider Internal Medicine
DX: I12.9 Hypertensive chronic kidney disease with stage 1 through stage 4 chronic kidney disease, or unspecified chronic kidney disease (principal); N18.30 Chronic kidney disease, stage 3 unspecified; D63.1 Anemia in chronic kidney disease; I48.91 Unspecified atrial fibrillation; R73.9 Hyperglycemia, unspecified; R60.9 Edema, unspecified; M25.511 Pain in right shoulder
CPT/HCPCS: 36415; 80048; 81001; 83036; 84439; 84443; 85025; 99212

== ENCOUNTER → 2024-07-20 08:39 | Outpatient (REF) | payer OTHER, SELFPAY ==
--- NOTE | 2024-07-20 08:42 | HM_ITS ---
* Total monitoring time 3 days. * Underlying rhythm is sinus with an average rate of 49/Min. About 89% of the time, rate < 60/Min. * Rare supraventricular ectopy. * Rare ventricular ectopy. * No significant pauses or AV blocks. * No patient markers. * Diary not received. MTDD
--- NOTE | 2024-07-20 08:42 | CA_ITS ---
Transthoracic Echocardiogram Patient (Last, First, Middle): Concha Hudson, Gender: Female Date of : 1935 Age: 88 Procedure Date: 07/20/2024 Procedure Type: Transthoracic Echocardiogram Location: OP Height: 152.4 cm Weight: 83.01 kg BSA: 1.80 m2 Heart Rate: 43 bpm BP: 120 / 62 mmHg Electrician Maintenance: SB Referring MD: Penny Orellana MD Symptoms: I48.91 - Unspecified atrial fibrillation Study Quality: Adequate ECG Rhythm: Bradycardia Conclusions: - The left ventricular systolic function is normal. The calculated ejection fraction is 56% by biplane method. - There is mild aortic valve stenosis. Findings Left Ventricle Normal left ventricular cavity size. The left ventricular systolic function is normal. The calculated ejection fraction is 56% by biplane method. Diastolic function is normal for age. Focal hypertrophy of the basal septum. No overt regional wall motion abnormality, but basal inferior wall difficult to assess. Right Ventricle Normal right ventricular cavity size and systolic function. Atria The left atrium is normal in size. The right atrium is mildly dilated. Aortic Valve There is moderate calcification of the aortic valve. There is mild aortic valve stenosis. The peak aortic velocity is 2.16 m/s with a calculated peak gradient of 19 mmHg. The mean gradient is 11 mmHg. The aortic valve area is 1.42 cm2. There is no aortic valve regurgitation. Mitral Valve The mitral valve appears normal. There is no mitral valve regurgitation. There is no mitral valve stenosis. Pulmonic Valve The pulmonic valve is likely normal. Tricuspid Valve Normal tricuspid valve structure. There is mild tricuspid valve regurgitation. There is no evidence of pulmonary hypertension. Great Vessels The asc aorta is normal in size. Venous The inferior vena cava is normal in size and collapses greater than 50% with inspiration. Pericardium/Pleural There is no evidence of pericardial effusion. Prior Study Comparison No prior study available for comparison. Measurements 2D Linear Measurements IVSd: 0.95 0.6-0.9/0.6-1.0 cm LVIDd: 4.68 3.9-5.3/4.2-5.9 cm LVIDd Index: 2.60 2.4-3.2/2.2-3.1 cm/m2 LVIDs: 2.90 2.0-3.6 cm LVPWd: 0.80 0.7-1.1 cm LA Diam: 3.00 2.7-3.8/3.0-4.0 cm LAIDs Index: 1.67 1.5-2.3 cm/m2 LV Mass: 169.88 67-162/88-224 g LV Mass Index: 94.38 43-95/49-115 g/m2 LVOT Diam: 1.80 3.0+(-)1.3 cm 2D Systolic Function EF 4C: 60.90 >55% EF 2C: 53.90 >55% EF BiP: 56.00 >55% Mitral Valve MV Pk E: 0.66 MV PK A: 0.95 MV Decel Time: 311.00 E/A: 0.70 E'Lateral: 8.27 E'Medial: 5.00 E/E' Med: 13.10 E/E' Lat: 7.90 PHT: 91.00 MVA PHT: 2.42 Decel Dolores: 2.11 Aortic Valve AoV Pk Jakob: 2.16 AoV Mn Jakob: 1.51 AoV VTI: 0.53 AoV Pk Grad: 19.00 Aov Mn Grad: 11.00 BAKARI Cont.VTI: 1.42 LVOT LVOT Pk Jakob: 1.31 LVOT Mn Jakob: 0.90 LVOT VTI: 0.30 LVOT Pk Grad: 7.00 LVOT Mn Grad: 4.00 LVOT Diam: 1.80 LVOT Area: 2.54 Diastolic Function MV Pk E: 0.66 MV Pk A: 0.95 E/A: 0.70 E'Medial: 5.00 E/E' Med: 13.10 E' Laterial: 8.27 E/E' Lat: 7.90 Right Ventricle TAPSE (mm): 23.30 TVS' Jakob: 12.10 Tricuspid Valve TR Pk Jakob: 2.10 TR Pk Grad: 18.00 RA Press: 3.00 RVSP: 21.00 Great Vessels Aorta Sinus of Valsalva: 3.00 2.0-3.5 cm Ao Asc: 3.00 2.1-3.4 cm Pulmonary Veins Pulm Vein S/D 1.10 Pulmonary Valve PV Pk Jakob: 1.05 Peak PV Grad: 4.00 Updated in Other Vendor System with Status of Final Jb Jonas MD electronically signed on 07/21/2024 12:42:52 PM with status of Final
== END ==
LOC: HO.CARD 08:39
PROVIDERS: PCP Internal Medicine; Visit Provider Internal Medicine
DX: I48.91 Unspecified atrial fibrillation (principal); N18.30 Chronic kidney disease, stage 3 unspecified
CPT/HCPCS: 93242; 93306

== ENCOUNTER → 2024-07-20 08:42 | Outpatient (BNV) | payer OTHER, SELFPAY | PROVIDERS: PCP Internal Medicine; Visit Provider Internal Medicine | DX: I47.10 Supraventricular tachycardia, unspecified (principal) | CPT/HCPCS: 93244; 93306 ==

== ENCOUNTER 2024-08-30 11:03 | Outpatient (AMB) | payer OTHER, SELFPAY ==
[2024-08-30 11:06] VITALS: BP 120/60; PULSE 52; O2SAT 99; BMI 35.7
--- NOTE | 2024-08-30 11:06 | A.OFFPC_ITS ---
Vital Signs 08/30/24 11:06 Height 5 ft Weight 183 lb BMI 35.7 BP 120/60 Blood Pressure Location Lt brachial Position Sitting Pulse 52 Pulse Source Pulse Oximeter Pulse Oximetry (%) 99 Oxygen Delivery Method Room Air Intake Visit Reasons: Follow up Intake Note: Pt is here today for a follow up visit. Allergies aspirin Allergy (Unknown, Verified 08/30/24 11:08) Facial Swelling Medication List - Last Reconciled 08/30/24 by Penny Orellana MD apixaban (Eliquis) 2.5 mg PO BID estradiol 0.01%(0.1mg/gram) pea size to urethra vaginally daily; glucosamine HCl 1,000 mg PO DAILY hydrochlorothiazide 25 mg PO DAILY irbesartan 300 mg PO DAILY meclizine 25 mg PO BID metoprolol succinate ER 100 mg PO DAILY oxybutynin chloride ER 5 mg PO DAILY Tobacco use date assessed: 08/30/24 Dental Screening Dental Screen Date: 05/05/24 HPI Follow up HPI Details Patient presents for the follow-up of hypertension chronic kidney disease stage 3 paroxysmal AFib on metoprolol and Eliquis. [facility] Medical History (Updated 08/30/24 @ 11:44 by Penny Orellana MD) Bilateral hand pain Dysuria CKD (chronic kidney disease) stage 3, GFR 30-59 ml/min Bilateral carotid bruits Subconjunctival bleed Vertigo HTN (hypertension) Osteoarthritis Hyperlipidemia Vitamin D deficiency Hyperparathyroidism Goiter Surgical History H/O parathyroidectomy History of knee replacement Family History Father No problems noted. Mother No problems noted. Social History Housing: House Alcohol intake: never Patient Tobacco Use Status: Never used Tobacco e-Cigarette/Vaping Use: Never Used service: No Current occupational status: retired Cognitive needs: No Hearing needs: No Vision needs: Yes Questionnaire Thrive Questionnaire Date Thrive assessed: 07/12/24 I am a: Patient What is your living situation today?: I have a steady place to live Within the past 12 months, did the food you bought not last and you didn't have the money to get more?: Never true Within the past 12 months, did you worry whether your food would run out before you got money to buy more?: Never true Do you have trouble paying for medicines?: No Do you have trouble getting transportation to medical appointments?: I choose not to answer this question Do you have trouble paying your heating and electricity bill?: I choose not to answer this question Do you have trouble taking care of your child, family member or friend?: I choose not to answer this question Do you have trouble with day-to-day activities such as bathing, preparing meals, shopping, managing finances, etc.?: I choose not to answer this question Are you currently unemployed and looking for a job?: I choose not to answer this question Are you interested in more education?: I choose not to answer this question Please select the resources that you would like help with: None Currently or been in a relationship where the following occur: I choose not to answer THRIVE Score: 0 PAMELLA-7 AMB Questionnaire PAMELLA-7 Date PAMELLA - 7 assessed: 10/29/23 Becoming easily annoyed or irritable: 0 = Not at all Feeling afraid as if something awful might happen: 0 = Not at all Source: Developed by Drs. Cristian Patiño, Edwige Sanchez, Tyson Herman and colleagues, with an educational hemanth from [employer]. Review of Systems Const All systems reviewed & are unremarkable except as noted in HPI and below Card Reports no additional complaints Resp Reports no additional complaints GI Reports no additional complaints Reports no additional complaints Physical exam (Primary Care) Vital Signs: Last Vital Signs Pulse 52 08/30/24 11:06 BP 120/60 08/30/24 11:06 Pulse Ox 99 08/30/24 11:06 Oxygen Delivery Method Room Air 08/30/24 11:06 BMI result Body Mass Index 35.7 Tobacco/Smoking Status: Tobacco use Status Tobacco use date assessed 08/30/24 08/30/24 11:13 Patient Tobacco Use Status Never used Tobacco 08/30/24 11:13 e-Cigarette/Vaping Use Never Used 08/30/24 11:13 Thrive Assessment: Date of Thrive Assessment Date Thrive assessed 07/12/24 08/30/24 11:13 Currently or been in a relationship where the following occur: I choose not to answer Const General: no acute distress Eyes General: appearance normal, both eyes and all related structures Resp Effort & Inspection: normal respiratory effort Auscultation: clear to auscultation bilaterally Cardio Rhythm: regular rhythm Heart sounds: S1 normal heart sound present and S2 normal heart sound present GI Inspection: Yes normal to inspection Palpation (GI): Soft to palpation Coding Level of Care Code Est Pt Level 4 (11597) Complex EM visit Add On G2211 Diagnoses A-fib I48.91 Anemia D64.9 Vitamin D deficiency E55.9 CKD (chronic kidney disease) stage 3, GFR 30-59 ml/min N18.30 HTN (hypertension) I10 Hyperglycemia R73.9 Assessment & Plan Assessment & Plan (1) A-fib: Comment: paroxysmal ,Holter negative and ECHO EF 56%, mild 06/2024 Code(s): I48.91 - Unspecified atrial fibrillation Category: Medical Plan: Continue Eliquis and metoprolol (2) Anemia: Code(s): D64.9 - Anemia, unspecified Category: Medical Plan: Monitor CBC (3) Vitamin D deficiency: Code(s): E55.9 - Vitamin D deficiency, unspecified Category: Medical Plan: Continue vitamin D (4) CKD (chronic kidney disease) stage 3, GFR 30-59 ml/min: Code(s): N18.30 - Chronic kidney disease, stage 3 unspecified Category: Medical Plan: Avoid nephrotoxins monitor renal function (5) HTN (hypertension): Code(s): I10 - Essential (primary) hypertension Category: Medical Plan: Continue current medications (6) Hyperglycemia: Code(s): R73.9 - Hyperglycemia, unspecified Category: Medical Plan: A1c is 5.5, continue ADA diet increase exercise weight loss discussed Orders: Orders Comprehensive Bard. Panel Fast 2 Months D64.9 - Anemia, unspecified, E55.9 - Vitamin D deficiency, unspecified, I10 - Essential (primary) hypertension, I48.91 - Unspecified atrial fibrillation, N18.30 - Chronic kidney disease, stage 3 unspecified Complete Blood Count Auto Diff 2 Months D64.9 - Anemia, unspecified, E55.9 - Vitamin D deficiency, unspecified, I10 - Essential (primary) hypertension, I48.91 - Unspecified atrial fibrillation, N18.30 - Chronic kidney disease, stage 3 unspecified Hemoglobin A1c 2 Months D64.9 - Anemia, unspecified, E55.9 - Vitamin D deficiency, unspecified, I10 - Essential (primary) hypertension, I48.91 - Unspecified atrial fibrillation, N18.30 - Chronic kidney disease, stage 3 unspecified TSH reflex Free T4 2 Months D64.9 - Anemia, unspecified, E55.9 - Vitamin D deficiency, unspecified, I10 - Essential (primary) hypertension, I48.91 - Unspecified atrial fibrillation, N18.30 - Chronic kidney disease, stage 3 unspecified Triiodothyronine T3 Free 2 Months D64.9 - Anemia, unspecified, E55.9 - Vitamin D deficiency, unspecified, I10 - Essential (primary) hypertension, I48.91 - Unspecified atrial fibrillation, N18.30 - Chronic kidney disease, stage 3 unspecified Medications: New metoprolol succinate ER 50 mg PO DAILY 90 tabs 3RF Discontinued metoprolol succinate ER Discontinued Reason: Doctor's Order 100 mg PO DAILY 90 tabs 3RF
== END 2024-08-30 11:52 | disposition home or self-care (01) ==
LOC: HO.HMCC 11:04
PROVIDERS: PCP Internal Medicine; Visit Provider Internal Medicine
DX: I48.91 Unspecified atrial fibrillation (principal); D64.9 Anemia, unspecified; E55.9 Vitamin D deficiency, unspecified; N18.30 Chronic kidney disease, stage 3 unspecified; I10 Essential (primary) hypertension; R73.9 Hyperglycemia, unspecified

== ENCOUNTER → 2024-08-30 11:03 | Outpatient (BNVA) | payer OTHER, SELFPAY | PROVIDERS: PCP Internal Medicine; Visit Provider Internal Medicine | DX: I48.91 Unspecified atrial fibrillation (principal); D64.9 Anemia, unspecified; E55.9 Vitamin D deficiency, unspecified; I12.9 Hypertensive chronic kidney disease with stage 1 through stage 4 chronic kidney disease, or unspecified chronic kidney disease; N18.30 Chronic kidney disease, stage 3 unspecified; R73.9 Hyperglycemia, unspecified | CPT/HCPCS: 99212 ==

== ENCOUNTER 2024-10-27 06:49 | Outpatient (REF) | payer OTHER, SELFPAY ==
--- OUTSIDE RECORDS SUMMARY | 2024-10-27 06:51 | XMS_ITS ---
Author Organization [facility] Address [address] [place] [address] Care Team Providers Care Iv Technician Name Role Phone Penny Orellana MD Primary Care Provider Unavaila Yuliana Cole Unavailable [phone] Anton Akins Unavailable [phone] Allergies Allergen (clinical drug ingredient) Drug/Non Drug Allergy documented on EMR Reaction Allergy Type Onset Date Status aspirin Aspirin Unknown Drug Allergy Active REASON FOR VISIT Painful nail(s) aggrevated by shoes and causing difficulty standing/walking. Medications Medication SIG (Take, Route, Frequency, Duration) Notes Start Date End Date Status Zinc Active Cephalexin 500 MG Oral for 10 PRN Not-Taking Doxycycline Monohydrate 100 MG 1 capsule Orally Once a day for 10 days 08/24/2023 Active Doxycycline Monohydrate 100 MG 1 capsule Orally Once a day for 10 days 08/28/2021 Not-Taking Metoprolol Succinate ER 100 MG TAKE 1 TABLET BY MOUTH ONCE DAILY Oral for 30 Not-Takin g Valsartan Not-Taking Magnesium Active Metoprolol Succinate 100 MG 1 capsule Orally Once a day for 30 day(s) Active oxyBUTYnin Chloride ER 5 MG TK 1 T PO QD Oral for 90 Active Omeprazole Active Fish Oil Active Clotrimazole-Betamethasone 1-0.05 % 1 application to affected area Externally Twice a day to affected areas on feet for 30 days 12/19/2020 Not-Taking Glucosource Lancets Active Meloxicam 7.5 MG 1 tablet Orally Once a day for 30 day(s) Active Meclizine HCl 25 MG Oral for 30 Not-Taking Centrum Adults Activ e Calcium Active hydroCHLOROthiazide 25 MG TAKE 1 TABLET BY MOUTH ONCE DAILY Oral for 30 Not-Takin g Fluad 0.5 ML inject 0.5 millilite rs intramuscularly Intramuscular for 1 Not-Taking Irbesartan 300 MG TAKE 1 TABLET BY WOOD TH ONCE DAILY Oral for 30 Not-Takin g Social History Tobacco Use: Social History Observation Description Date Details (start date - stop date) Former Smoker NA - NA Tobacco Use/Smoking Question Answer Notes Are you a: former smoker Additional Findings: Tobacco Non-User Current no n-smoker Alcohol Screen Question Answer Notes Did you have a drink containing alcohol in the p ast year? No Points 0 Interpretation Negative Tobacco use other than smoking: Question Answer Notes Are you an other tobacco user? No Vital Signs Height 5ft in 03/28/2024 Weight 184 lbs 03/28/2024 BMI 35.93 kg/m2 03/28/2024 Encounters Encounter Location Date Provider Diagnosis [facility] [address] [place] [address] 03/28/2024 Anton Akins Tinea unguium B35.1 ; Pain in right toe(s) M79.674 ; Pain in left toe(s) M79.675 ; Other hammer toe(s) (acquired), right foot M20.41 ; Other hammer toe(s) (acquired), left foot M20.42 ; Hallux rigidus, right foot M20.21 ; Hallux valgus (acquired), left foot M20.12 ; Unspecified atherosclerosis of [place] arteries of extremities, bilateral legs I70.203 and Tinea pedis B35.3 Assessments Encounter Date Diagnosis (ICD Code) Assessment Notes Treatment Notes Treatment Clinical Notes Section Notes 03/28/2024 Tinea unguium (ICD-10 - B35.1) 03/28/2024 Pain in right toe(s) (ICD-10 - M79.674) 03/28/2024 Pain in left toe(s) (ICD-10 - M79.675) 03/28/2024 Other hammer toe(s) (acquired), right foot (ICD-10 - M20.41) 03/28/2024 Other hammer toe(s) (acquired), left foot (ICD-10 - M20.42) 03/28/2024 Hallux rigidus, right foot (ICD-10 - M20.21) 03/28/2024 Hallux valgus (acquired), left foot (ICD-10 - M20.12) 03/28/2024 Unspecified atherosclerosis of [place] arteries of extremities, bilateral legs (ICD-10 - I70.203) 03/28/2024 Tinea pedis (ICD-10 - B35.3) Plan Of Treatment Next Appt Details Follow Up: 3 Months, Reason: Provider Name:Chanel muñiz, 01/17/2025 09:00:00 AM, [address] [place], [address], Provider Name:Yuliana villeda, 04/21/2025 09:00:00 AM, [address], [address], [place], [address], Procedure Notes * Category Sub-Category Detail Notes Debride Nail 6-10 Nail debridement Nail debridem ent performed extensively to reduce/remove overall nail length and girth, subungual debris, and necrotic tissue, by manual and electrical means with use of a nail nipper and/or dremel, to more viable healthy nail plate or bed tissue 6-10. Silver nitrate used for any petechial bleeding as necessary. Patient chooses, no pharmaceutical tx (03196) Keratoma Treatment Parring or Cutting o f Benign Hyperkeratotic Lesion(s) 27819 (2-4 Lesions) - The Benign hyperkeratotic lesions, as described above were pared, and/or cut utilizing a sterile #15 blade, tissue nippers, and/or dremel, Q8 Progress Notes * Katie HUDSONB:1935 ([age] yo F)Acc No.[id number]:03/28/2024 Progress Note Patient:?Concha Hudson Provider:?Anton Akins DPM :1935???Age:88 Y???Sex:Female D ate:03/28/2024 Address:[address] [place] [address] , [facility] Pcp:Penny Orellana MD Subjective: * Chief Complaints: * ??? Painful nail(s) aggrevat ed by shoes and causing difficulty standing/walking. * HPI: ???Painful Nails:?Pt States Last PCP Visit:?Date:?10/27/2023 * ROS:?General/Constitutional:?Nausea?denies.?Vomiting?denies.?Hunger Thirst?denies.?Loss appetite?denies.?Chills?denies.?Fatigue?denies.?Fever?denies.?Night Sweats?denies.?Unexplained weight loss?denies.?Unexplained weight gain?denies.?HEENTM:?Dentures?denies.?Dizziness?denies.?Glasses/contacts?denies.?Retinopathy?de nies.?Blurred/double vision?denies.?TMJ?denies.?Discharge/drainage?denies.?Implants?denies.?Sore throat?denies.?Dental implants?denies.?Hard of hearing ?denies.?Difficulty chewing/swallowing/speaking?denies.?Nose bleeds?denies.?Sore mouth?denies.?Respiratory:?On Oxygen?denies.?Pneumonia/pleurisy?denies.?Bronchitis?denies.?Emphysema?denies.?C oughing?denies.?Cough blood?denies.?Shortness of breath?denies.?Wheezing?denies.?Cardiovascular:?Pacemaker?denies.?MVP?denies.?WPW?denies.?CHF?denies.?Heart attack?denies.?Septal defect?denies.?Rapid beat?denies.?Chest pain ?denies.?Atrial Fib.?denies.?Murmur/Palpitations?denies.?Gastrointestinal:?Hemorrhoids?denies.?Stomach/Abdominal pain?denies.?Dark blood stool?denies.?Irritable bowel ?denies.?Constipation?denies.?Diarrhea?denies.?Hematology:?Swelling?admits.?Clots?denies.?Varicose Veins?denies.?Bruising?denies.?Bleeding problem?denies.?Genitourinary:?Blood urine?denies.?Frequent/Painfu/urination/bladder control?denies.?Kidney stones?denies.?Infection (UTI)?denies.?Nephropathy?denies.?sex trans dis (STD)?denies.?Prostate?denies.?Musculoskeletal:?Hammertoes?denies.?Bunions?admits.?Back Pain?admits.?Muscle Cramps/ Resting?denies.?Muscle cramps / walking?denies.?Generalized aches and pains?denies.?Weakness?denies.?Integ.:?Ni?denies.?Scars?denies.?Corns/calluses?denies.?Ingrown nails?denies.?Painful nails?denies.?Open Sores?denies.?Rashes?denies.?Neurologic:?Difficulty sleeping?denies.?Brain disorder?denies.?Numbness?denies.?Balance trouble?denies.?Confusion?denies.?Fainting/blackouts?denies.?Tingling?denies.?Tr emors?denies.? * Medical History:? * Surgical History:?gall bladd er bunionectomy kidney stones knee surgery ovarian surgery parathyroidectomy L carpal tunnel surgery R carpal tunnel surgery 08/2022 * Hospitalization/Major Diagno stic Procedure:?Denies Past Hospitalization * Family History:?Mother: dece ased, heart attack.?Father: .? * Social History:?Tobacco Use:?Tobacco Use/Smoking?Are you a:?former smoker ?Additional Findings: Tobacco Non-User?Current non-smoker ?Tobacco use other than smoking?Are you an other tobacco user??No ???Drugs/Alcohol:?Drugs?Have you used drugs other than those for medical reasons in the past 12 months??No ?Alcohol Screen?Did you have a drink containing alcohol in the past year??No ?Points?0 ?Interpretation?Negative ???Miscellaneous:?Caffeine: yes, 1-2 cups per day coffee. ?Children: yes, 2. ?Exercise: yes, walking, exercise home, senior center. ?Marital status: . 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 * Medications:?TakingCalcium C entrum Adults Fish Oil Glucosource Lancets Meloxicam 7.5 MG Tablet 1 tablet Orally Once a dayMetoprolol Succinate 100 MG Capsule ER 24 Hour Sprinkle 1 capsule Orally Once a dayMagnesium Omeprazole oxyBUTYnin Chloride ER 5 MG Tablet Extended Release 24 Hour TK 1 T PO QD Oral Zinc Doxycycline Monohydrate 100 MG Capsule 1 capsule Orally Once a dayTaking Calcium Taking Centrum Adults Taking Fish Oil Taking Glucosource Lancets Taking Meloxicam 7.5 MG Tablet 1 tablet Orally Once a dayTaking Metoprolol Succinate 100 MG Capsule ER 24 Hour Sprinkle 1 capsule Orally Once a dayTaking Magnesium Taking Omeprazole Taking oxyBUTYnin Chloride ER 5 MG Tablet Extended Release 24 Hour TK 1 T PO QD Oral Taking Zinc Taking Doxycycline Monohydrate 100 MG Capsule 1 capsule Orally Once a dayNot-Taking/PRNClotrimazole-Betamethasone 1-0.05 % Cream 1 application to affected area Externally Twice a day to affected areas on feetMeclizine HCl 25 MG Tablet Oral Valsartan Cephalexin 500 MG Capsule Oral , Notes: PRNDoxycycline Monohydrate 100 MG Capsule 1 capsule Orally Once a dayMetoprolol Succinate ER 100 MG Tablet Extended Release 24 Hour TAKE 1 TABLET BY MOUTH ONCE DAILY Oral hydroCHLOROthiazide 25 MG Tablet TAKE 1 TABLET BY MOUTH ONCE DAILY Oral Irbesartan 300 MG Tablet TAKE 1 TABLET BY MOUTH ONCE DAILY Oral Fluad 0.5 ML Suspension Prefilled Syringe inject 0.5 milliliters intramuscularly Intramuscular Medication List reviewed and reconciled with the patientNot-Taking/PRN Clotrimazole-Betamethasone 1-0.05 % Cream 1 application to affected area Externally Twice a day to affected areas on feetNot-Taking/PRN Meclizine HCl 25 MG Tablet Oral Not-Taking/PRN Valsartan Not-Taking/PRN Cephalexin 500 MG Capsule Oral , Notes: PRNNot-Taking/PRN Doxycycline Monohydrate 100 MG Capsule 1 capsule Orally Once a dayNot-Taking/PRN Metoprolol Succinate ER 100 MG Tablet Extended Release 24 Hour TAKE 1 TABLET BY MOUTH ONCE DAILY Oral Not-Taking/PRN hydroCHLOROthiazide 25 MG Tablet TAKE 1 TABLET BY MOUTH ONCE DAILY Oral Not-Taking/PRN Irbesartan 300 MG Tablet TAKE 1 TABLET BY MOUTH ONCE DAILY Oral Not-Taking/PRN Fluad 0.5 ML Suspension Prefilled Syringe inject 0.5 milliliters intramuscularly Intramuscular Medication List reviewed and reconciled with the patient * Allergies:?Aspirinyes[Allerg ies Verified] Objective: * Vitals:?Ht: 5ft, Wt: 184, BM I: 35.93, Shoe size: 7-7.5, Wt-k.46 kg. * Examination: ???General Examination: ?GENERAL APPEARANCE:?pleasant, alert, well nourished, well developed, well hydrated, with good attention to hygene/body habitus, and in no acute distress.?ORIENTED:?person,place, and time.?Neurological: ?SENSORY:?Neurological exam reveals intact sensorium, pain sensation normal, vibration sensation intact, pinprick sensation is normal in the lower extremities, Pt denies, anesthesia, burning, paresthesia, tingling, B/L.?BABINSKI REFLEX:?absent.?Vascular: ?DP PULSES:? 1/4, B/L.?PT PULSES:? 0/4, B/L.?CAPILLARY FILL TIME:? delayed, all digits, B/L.?SKIN TEMPERTURE GRADIENT OF THE LOWER EXTERMITIES:? decreased, cool to cold, proximal to distal, B/L.?HAIR GROWTH/TEXTURE/ELASTICITY/TURGOR:? decreased, B/L.?PIGMENTATION:? cyanotic, B/L.?EDEMA:? /4, B/L, Feet, Ankle(s), Leg(s).?Dermatologic: ?SKIN FINDINGS:?Skin exam reveals Keratotic lesion(s) located at, Medial plantar, IPJ, TA, T4, Medial, DIPJ, T6, Plantar, T7; dried hematoma left first mtpj 4mmin yany.?Orthopedic: ?MUSCLE STRENGTH:?5/5 all groups in a symmetrical fashion , B/L.?GAIT ABNORMALITY:?pronated, abducted, B/L.?BUNION:? Medially prominent 1st MPJ, LEFT, Lateral tracking 1st MPJ incompletely reducable; rectus sx arthrodesis right first mtpj.?DIGITAL DEFORMITIES:? Digital contracture dionna feet with medial subluxation right 2nd mtpj and toe and overlapping t1 over ta.?Nails: ?NAILS are:?elongated,overgrown,dystrophic,greater than 3mm thick,discolored and friable with crumbly malodorous subungual debris, with pain on palpation, TA, T2, T3, T4, T, T6, T7, T9.? Assessment: * Assessment: 1.?Tinea unguium - B35.1 (Pr imary)?2.?Pain in right toe(s) - M79.674?3.?Pain in left toe(s) - M79.675?4.?Other hammer toe(s) (acquired), right foot - M20.41?5.?Other hammer toe(s) (acquired), left foot - M20.42?6.?Hallux rigidus, right foot - M20.21?7.?Hallux valgus (acquired), left foot - M20.12?8.?Unspecified atherosclerosis of [place] arteries of extremities, bilateral legs - I70.203?9.?Tinea pedis - B35.3? Plan: * Treatment: * Procedures:?Debride Nail 6-10:?Nail debridement?Nail debridement performed extensively to reduce/remove overall nail length and girth, subungual debris, and necrotic tissue, by manual and electrical means with use of a nail nipper and/or dremel, to more viable healthy nail plate or bed tissue 6-10. Silver nitrate used for any petechial bleeding as necessary. Patient chooses, no pharmaceutical tx (62525).?Keratoma Treatment:?Parring or Cutting of Benign Hyperkeratotic Lesion(s)?67591 (2-4 Lesions) - The Benign hyperkeratotic lesions, as described above were pared, and/or cut utilizing a sterile #15 blade, tissue nippers, and/or dremel, Q8.? * Procedure Codes:?18554 DEBRI DE NAIL, 6 OR MORE, Modifiers: XS 44884 TRIM SKIN LESIONS, 2 TO 4, Modifiers: Q8 * Follow Up:?3 Months * Images: * Sign off status: Completed true * Provider:?Anton Akins DPM Date:? 024 Generated for Vicki castañeda/Debbie/eTjeanne on:?10/27/2024 06:50 AM EST History and Physical Notes * HPI (History of Present Illness) Category Sub-Category Detail Notes Category Not es Painful Nails Pt States Last PCP Visit: Date:: 10/27/2023 Examination Category Sub-Category Detail Notes Category Not es Neurological SENSORY: Neurological exa m reveals intact sensorium, pain sensation normal, vibration sensation intact, pinprick sensation is normal in the lower extremities, Pt denies, anesthesia, burning, paresthesia, tingling, B/L BABINSKI REFLEX: absent Dermatologic SKIN FINDINGS: Skin exam reveal s Keratotic lesion(s) located at, Medial plantar, IPJ, TA, T4, Medial, DIPJ, T6, Plantar, T7; dried hematoma left first mtpj 4mmin yany Orthopedic GAIT ABNORMALITY: pronated, abducted, B/L BUNION: Medially prominent 1 st MPJ, LEFT, Lateral tracking 1st MPJ incompletely reducable; rectus sx arthrodesis right first mtpj DIGITAL DEFORMITIES: Digital contracture dionna feet with medial subluxation right 2nd mtpj and toe and overlapping t1 over ta MUSCLE STRENGTH: 5/5 all groups in a symmetrical fashion , B/L General Examination GENERAL APPEARANCE: pleasant , alert, well nourished, well developed, well hydrated, with good attention to hygene/body habitus, and in no acute distress ORIENTED: person,place, and ti me Vascular DP PULSES (B): 1/4, B/L PT PULSES (B): 0/4, B/L CAPILLARY FILL TIME: delayed, all digits , B/L TEMPERTURE GRADIENT (C): decreased, cool to cold, proximal to distal, B/L TROPHIC CONDITION-TEXTURE/ELASTICITY/TURGOR/HAIR GROWTH (B): decreased, B/L EDEMA (C): 1/4, B/L, Feet, Ankl e(s), Leg(s) PIGMENTATION: cyanotic, B/L Nails NAILS are: elongated,overgr own,dystrophic,greater than 3mm thick,discolored and friable with crumbly malodorous subungual debris, with pain on palpation, TA, T2, T3, T4, T, T6, T7, T9
--- OUTSIDE RECORDS SUMMARY | 2024-10-27 06:51 | XMS_ITS | Patient Health Record ---
[facility] Address [address] [facility] [place] [address] Care Team Providers Care Visual Training Aide Name Role Phone Penny Orellana MD Primary Care Provider Unavaila Yuliana Cole Unavailable [phone] Anton Akins Unavailable [phone] Allergies Allergen (clinical drug ingredient) Drug/Non Drug Allergy documented on EMR Reaction Allergy Type Onset Date Status aspirin Aspirin Unknown Drug Allergy Active Reason For Referral No Information Medications Medication SIG (Take, Route, Frequency, Duration) Notes Start Date End Date Status Fish Oil Active Glucosource Lancets Active Calcium Active Centrum Adults Activ e Metoprolol Succinate 100 MG 1 capsule Or ally Once a day for 30 day(s) Active Magnesium Active Meloxicam 7.5 MG 1 tablet Orally Once a day for 30 day(s) Active Zinc Active Doxycycline Monohydrate 100 MG 1 capsule Orally Once a day for 10 days Active Omeprazole Active oxyBUTYnin Chloride ER 5 MG TK 1 T PO QD Oral for 90 Active Immunizations Vaccine Route Administration Date Status Comme nts COVID-19 Pfizer BioNTech Vaccine Unknown 07/25/2021 Administered 1st 12/03/2020 2nd 12/25/2020 Influenza Unknown 07/25/2022 Administered Social History Tobacco Use: Social History Observation [...] Are you an other tobacco user? No Problems Problem Type SNOMED Code ICD Code Onset Dates Problem Status W/U Status Risk Notes Problem Acquired hallux valgus (95026282) Hallux valgus (acquired), left foot (M20.12) Active confirmed Problem Unspecified atherosclerosis of [place] arteries of extremities, bilateral legs (I70.203) Active confirmed Problem Non-pressure chronic ulcer of other part of left foot limited to breakdown of skin (L97.521) Active confirmed Problem Non-pressure chronic ulcer of other part of right foot limited to breakdown of skin (L97.511) Active confirmed Problem Acquired hammer toe of right foot (06525429004 65888) Other hammer toe(s) (acquired), right foot (M20.41) Active confirmed Problem Acquired hammer toe of left foot ([id number] 67997) Other hammer toe(s) (acquired), left foot (M20.42) Active confirmed Problem Acquired hallux rigidus (8440010) Hallux rigidus, right foot (M20.21) Active confirmed Problem Atherosclerosis of pe[place] artery of both lower extremities, with unspecified presence of clinical manifestation (I70.203) Active confirmed Q7(A), Q8(2B), Q9(1B,2C ) Vital Signs Blood pressure diastolic 70 mm Hg 10/13/2024 Height 5ft in 10/13/2024 Blood pressure systolic 120 mm Hg 10/13/2024 Weight 184 lbs 10/13/2024 BMI 35.93 kg/m2 10/13/2024 Procedures Procedure Date Ordered Date Performed Result Body Sit e 27047-QCMQEPN NAIL, 6 OR MORE 10/13/2024 N/A 25260-NQNQ SKIN LESIONS, 2 TO 4 10/13/2024 N/A Encounters Encounter Location Date Provider Diagnosis [facility] [place] [address] [place] [address] 12/21/2023 Anton Akins Tinea unguium B35.1 ; Pain in right toe(s) M79.674 ; Pain in left toe(s) M79.675 ; Other hammer toe(s) (acquired), right foot M20.41 ; Other hammer toe(s) (acquired), left foot M20.42 ; Hallux rigidus, right foot M20.21 ; Hallux valgus (acquired), left foot M20.12 ; Unspecified atherosclerosis of [place] arteries of extremities, bilateral legs I70.203 and Tinea pedis B35.[address] [address] 03/28/2024 Anton Akins Tinea unguium B35.1 ; Pain in right toe(s) M79.674 ; Pain in left toe(s) M79.675 ; Other hammer toe(s) (acquired), right foot M20.41 ; Other hammer toe(s) (acquired), left foot M20.42 ; Hallux rigidus, right foot M20.21 ; Hallux valgus (acquired), left foot M20.12 ; Unspecified atherosclerosis of [place] arteries of extremities, bilateral legs I70.203 and Tinea pedis B35.[address] [address] 06/29/2024 Anton Akins Tinea unguium B35.1 ; Pain in right toe(s) M79.674 ; Pain in left toe(s) M79.675 ; Other hammer toe(s) (acquired), right foot M20.41 ; Other hammer toe(s) (acquired), left foot M20.42 ; Hallux rigidus, right foot M20.21 ; Hallux valgus (acquired), left foot M20.12 ; Unspecified atherosclerosis of [place] arteries of extremities, bilateral legs I70.203 ; Tinea pedis B35.3 ; Cellulitis of right toe L03.031 and Cutaneous abscess of right foot L02.[address] [address] 10/13/2024 Yuliana Christianson Atherosclerosis of pe[place] artery of both lower extremities, with unspecified presence of clinical manifestation I70.203 ; Tinea unguium B35.1 ; Pain in right toe(s) M79.674 and Pain in left toe(s) M79.675 Assessments Encounter Date Diagnosis (ICD Code) Assessment Notes Treatment Notes Treatment Clinical Notes Section Notes 12/21/2023 Tinea unguium (ICD-10 - B35.1) 03/28/2024 Tinea unguium (ICD-10 - B35.1) 06/29/2024 Tinea unguium (ICD-10 - B35.1) 06/29/2024 Pain in right toe(s) (ICD-10 - M79.674) 10/13/2024 Atherosclerosis of pe[place] artery of both lower extremities, with unspecified presence of clinical manifestation (ICD-10 - I70.203) Q7(A), Q8(2B), Q9(1B,2C) 10/13/2024 Tinea unguium (ICD-10 - B35.1) 06/29/2024 Pain in left toe(s) (ICD-10 - M79.675) 03/28/2024 Pain in right toe(s) (ICD-10 - M79.674) 12/21/2023 Pain in right toe(s) (ICD-10 - M79.674) 12/21/2023 Pain in left toe(s) (ICD-10 - M79.675) 03/28/2024 Pain in left toe(s) (ICD-10 - M79.675) 06/29/2024 Other hammer toe(s) (acquired), right foot (ICD-10 - M20.41) 10/13/2024 Pain in right toe(s) (ICD-10 - M79.674) 10/13/2024 Pain in left toe(s) (ICD-10 - M79.675) 06/29/2024 Other hammer toe(s) (acquired), left foot (ICD-10 - M20.42) 03/28/2024 Other hammer toe(s) (acquired), right foot (ICD-10 - M20.41) 12/21/2023 Other hammer toe(s) (acquired), right foot (ICD-10 - M20.41) 12/21/2023 Other hammer toe(s) (acquired), left foot (ICD-10 - M20.42) 03/28/2024 Other hammer toe(s) (acquired), left foot (ICD-10 - M20.42) 06/29/2024 Hallux rigidus, right foot (ICD-10 - M20.21) 06/29/2024 Hallux valgus (acquired), left foot (ICD-10 - M20.12) 03/28/2024 Hallux rigidus, right foot (ICD-10 - M20.21) 12/21/2023 Hallux rigidus, right foot (ICD-10 - M20.21) 03/28/2024 Hallux valgus (acquired), left foot (ICD-10 - M20.12) 12/21/2023 Hallux valgus (acquired), left foot (ICD-10 - M20.12) 06/29/2024 Unspecified atherosclerosis of [place] arteries of extremities, bilateral legs (ICD-10 - I70.203) 03/28/2024 Unspecified atherosclerosis of [place] arteries of extremities, bilateral legs (ICD-10 - I70.203) 06/29/2024 Tinea pedis (ICD-10 - B35.3) 12/21/2023 Unspecified atherosclerosis of pe[place] arteries of extremities, bilateral legs (ICD-10 - I70.203) 12/21/2023 Tinea pedis (ICD-10 - B35.3) 03/28/2024 Tinea pedis (ICD-10 - B35.3) 06/29/2024 Cellulitis of right toe (ICD-10 - L03.031) 06/29/2024 Cutaneous abscess of right foot (ICD-10 - L02.611) Plan Of Treatment Pending Test Test Name Order Date X ray : Foot, right 3V 03/01/2020 92233-VSGSOCM NAIL, 6 OR MORE 10/13/2024 25445-ZPKR SKIN LESIONS, 2 TO 4 10/13/20 24 75497-YYMU SKIN LESIONS, 2 TO 4 03/01/20 20 37087-OEQV SKIN LESIONS, 2 TO 4 06/11/20 20 49646-TNQP SKIN LESIONS, 2 TO 4 09/10/20 20 79100-UMRT SKIN LESIONS, 2 TO 4 12/19/19 21 45118-MYLV SKIN LESIONS, 2 TO 4 03/20/20 21 02487-UJFB SKIN LESIONS, 2 TO 4 08/28/20 21 28395-KWQF SKIN LESIONS, 2 TO 4 12/23/19 22 Next Appt Details Provider Name:Chanel muñiz, 01/17/2025 09:00:00 AM, [address] [place], [address], Provider Name:Yuliana Reyna ronal, 04/21/2025 09:00:00 AM, [address] [address], [place], [address], Insurance Providers Payer Name Payer Address Payer Phone Subscriber Number Group Number Insured Name Patient Relationship to Insured Coverage Start Date Coverage End Date [id number] [address] [place] [address] [id number] [facility] Self - patient is the insured Medical (General) History Medical History History ICD Code Arthritis High blood pressure Bone implants/screws Surgical History Surgery Date(Month/Year) gall bladder bunionectomy kidney stones knee surgery ovarian surgery parathyroidectomy L carpal tunnel surgery R carpal tunnel surgery 08/2022
--- OUTSIDE RECORDS SUMMARY | 2024-10-27 06:51 | XMS_ITS ---
Author Organization [facility] Address [address] [facility] [address] [place] [address] Care Team Providers Care Inspector [employer]ating [employer] Refrigeration Name Role Phone Penny Orellana MD Primary Care Provider Unavaila Yuliana Cole Unavailable [phone] Anton Akins Unavailable [phone] Allergies Allergen (clinical drug ingredient) Drug/Non Drug Allergy documented on EMR Reaction Allergy Type Onset Date Status aspirin Aspirin Unknown Drug Allergy Active REASON FOR VISIT Painful nail(s) aggrevated by shoes and causing difficulty standing/walking., Possible Infection Medications Medication SIG (Take, Route, Frequency, Duration) Notes Start Date End Date Status Zinc Active oxyBUTYnin Chloride ER 5 MG TK 1 T PO QD Oral for 90 Active Omeprazole Active Magnesium Active Metoprolol Succinate 100 MG 1 capsule Or ally Once a day for 30 day(s) Active Fish Oil Active Centrum Adults Activ e Doxycycline Monohydrate 100 MG 1 capsule Orally Once a day for 10 days Active Meloxicam 7.5 MG 1 tablet Orally Once a day for 30 day(s) Active Glucosource Lancets Active Calcium Active Social History Tobacco Use: Social History Observation Description Date Details (start date - stop date) Former Smoker NA - NA Tobacco Use/Smoking Question Answer Notes Are you a: former smoker Additional Findings: Tobacco Non-User Current no n-smoker Tobacco use other than smoking: Question Answer Notes Are you an other tobacco user? No Vital Signs Height 5ft in 06/29/2024 Weight 184 lbs 06/29/2024 BMI 35.93 kg/m2 06/29/2024 Encounters Encounter Location Date Provider Diagnosis [facility] [place] [address] [place] [address] 06/29/2024 Anton Akins Tinea unguium B35.1 ; Pain in right toe(s) M79.674 ; Pain in left toe(s) M79.675 ; Other hammer toe(s) (acquired), right foot M20.41 ; Other hammer toe(s) (acquired), left foot M20.42 ; Hallux rigidus, right foot M20.21 ; Hallux valgus (acquired), left foot M20.12 ; Unspecified atherosclerosis of [place] arteries of extremities, bilateral legs I70.203 ; Tinea pedis B35.3 ; Cellulitis of right toe L03.031 and Cutaneous abscess of right foot L02.611 Assessments Encounter Date Diagnosis (ICD Code) Assessment Notes Treatment Notes Treatment Clinical Notes Section Notes 06/29/2024 Tinea unguium (ICD-10 - B35.1) 06/29/2024 Pain in right toe(s) (ICD-10 - M79.674) 06/29/2024 Pain in left toe(s) (ICD-10 - M79.675) 06/29/2024 Other hammer toe(s) (acquired), right foot (ICD-10 - M20.41) 06/29/2024 Other hammer toe(s) (acquired), left foot (ICD-10 - M20.42) 06/29/2024 Hallux rigidus, right foot (ICD-10 - M20.21) 06/29/2024 Hallux valgus (acquired), left foot (ICD-10 - M20.12) 06/29/2024 Unspecified atherosclerosis of [place] arteries of extremities, bilateral legs (ICD-10 - I70.203) 06/29/2024 Tinea pedis (ICD-10 - B35.3) 06/29/2024 Cellulitis of right toe (ICD-10 - L03.031) 06/29/2024 Cutaneous abscess of right foot (ICD-10 - L02.611) Plan Of Treatment Medication Medication Name Sig Start Date Stop Date Notes Doxycycline Monohydrate 100 MG 1 capsule Orally Once a day for 10 days Next Appt Details Follow Up: 3 Months, Reason: Provider Name:Chanel Ramsey a, 01/17/2025 09:00:00 AM, [address] [facility], [place], [address], Provider Name:Yuliana villeda, 04/21/2025 09:00:00 AM, [address] [facility], [address], [place], [address], Procedure Notes * Category Sub-Category Detail Notes Abscess incision and drainage Anesthesia 2% Lidocaine local anesthesic Location Medial nail border, T5 Procedure A fine sterile eleva tor was used to loosen the eponychium, nail bed, nail plate and groove. A sterile nail splinter was then used to longitudinally section the nail. This section was removed. Any infected, devitilized or granulation tissue was removed. No underlying bone was identified. Bacitracin and sterile dressings applied, local wound care instructions were dispensed. Patient was informed of both conservative and future surgical procedures to prevent recurrence Debride Nail 6-10 Nail debridement Nail debridem ent performed extensively to reduce/remove overall nail length and girth, subungual debris, and necrotic tissue, by manual and electrical means with use of a nail nipper and/or dremel, to more viable healthy nail plate or bed tissue 6-10. Silver nitrate used for any petechial bleeding as necessary. Patient chooses, no pharmaceutical tx ([id number]) Keratoma Treatment Parring or Cutting o f Benign Hyperkeratotic Lesion(s) 93229 (2-4 Lesions) - The Benign hyperkeratotic lesions, as described above were pared, and/or cut utilizing a sterile #15 blade, tissue nippers, and/or dremel, Q8 Progress Notes * Katie HUDSONB:1935 ([age] yo F)Acc No.[id number]:06/29/2024 Progress Note Patient:?Concha Hudson Provider:?Anton Akins DPM :1935???Age:88 Y???Sex:Female D ate:06/29/2024 Address:[address] [place] [address] [place] , [id number] Pcp:Penny Orellana MD Subjective: * Chief Complaints: * ??? Painful nail(s) aggrevat ed by shoes and causing difficulty standing/walking.Possible Infection * HPI: ???Painful Nails:?Pt States Last PCP Visit:?Date:?05/26/2024 ???Skin problems:?Nature:?bleeding, redness, tender, swelling.?Location:?Right , 1st.?Duration:?a month.?Onset/Cause:?unknown.?Course:?worse.?Aggravated by:?any pressure, shoegear.? * ROS:?General/Constitutional:?Nausea?denies, denies.?Vomiting?denies, denies.?Hunger Thirst?denies, denies.?Loss appetite?denies, denies.?Chills?denies, denies.?Fatigue?denies, denies.?Fever?denies, denies.?Night Sweats denies, denies.?Unexplained weight loss?denies, denies.?Unexplained weight gain?denies, denies.?HEENTM:?Dentures?denies, denies.?Dizziness?denies, denies.?Glasses/contacts?denies, denies.?Retinopathy?denies, denies.?Blurred/double vision?denies, denies.?TMJ?denies, denies.?Discharge/drainage?denies, denies.?Implants?denies, denies.?Sore throat?denies, denies.?Dental implants?denies, denies.?Hard of hearing ?denies, denies.?Difficulty chewing/swallowing/speaking?denies, denies.?Nose bleeds?denies, denies.?Sore mouth?denies, denies.?Respiratory:?On Oxygen?denies, denies.?Pneumonia/pleurisy?denies, denies.?Bronchitis?denies, denies.?Emphysema?denies, denies.?Coughing?denies, denies.?Cough blood?denies, denies.?Shortness of breath?denies, denies.?Wheezing?denies, denies.?Cardiovascular:?Pacemaker?denies, denies.?MVP?denies, denies.?WPW?denies, denies.?CHF?denies, denies.?Heart attack?denies, denies.?Septal defect?denies, denies.?Rapid beat?denies, denies.?Chest pain ?denies, denies.?Atrial Fib.?denies, denies.?Murmur/Palpitations?denies, denies.?Gastrointestinal:?Hemorrhoids?denies, denies.?Stomach/Abdominal pain?denies, denies.?Dark blood stool?denies, denies.?Irritable bowel ?denies, denies.?Constipation?denies, denies.?Diarrhea?denies, denies.?Hematology:?Swelling?admits, admits.?Clots?denies, denies.?Varicose Veins?denies, denies.?Bruising?denies, denies.?Bleeding problem?denies, denies.?Genitourinary:?Blood urine?denies, denies.?Frequent/Painfu/urination/bladder control?denies, denies.?Kidney stones?denies, denies.?Infection (UTI)?denies, denies.?Nephropathy?denies, denies.?sex trans dis (STD)?denies, denies.?Prostate?denies, denies.?Musculoskeletal:?Hammertoes?denies, denies.?Bunions?admits, admits.?Back Pain?admits, admits.?Muscle Cramps/ Resting?denies, denies.?Muscle cramps / walking?denies, denies.?Generalized aches and pains?denies, denies.?Weakness?denies, denies.?Integ.:?Ni?denies, denies.?Scars?denies, denies.?Corns/calluses?denies, denies.?Ingrown nails?denies, denies.?Painful nails?denies, denies.?Open Sores?denies, denies.?Rashes?denies, denies.?Neurologic:?Difficulty sleeping?denies, denies.?Brain disorder?denies, denies.?Numbness?denies, denies.?Balance trouble?denies, denies.?Confusion?denies, denies.?Fainting/blackouts?denies, denies.?Tingling?denies, denies.?Tremors?denies, denies.? * Medical History:? * Surgical History:?gall bladd er bunionectomy kidney stones knee surgery ovarian surgery parathyroidectomy L carpal tunnel surgery R carpal tunnel surgery 08/2022 * Hospitalization/Major Diagno stic Procedure:?Denies Past Hospitalization * Family History:?Mother: dece ased, heart attack.?Father: .? * Social History:?Tobacco Use:?Tobacco Use/Smoking?Are you a:?former smoker ?Additional Findings: Tobacco Non-User?Current non-smoker ?Tobacco use other than smoking?Are you an other tobacco user??No ???Miscellaneous:?Caffeine: yes, 1-2 cups per day coffee. ?Children: yes, 2. ?Exercise: yes, walking, exercise home, senior center. ?Marital status: . 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 * Medications:?TakingCalcium C entrum Adults Fish Oil Glucosource Lancets Meloxicam 7.5 MG Tablet 1 tablet Orally Once a dayMetoprolol Succinate 100 MG Capsule ER 24 Hour Sprinkle 1 capsule Orally Once a dayMagnesium Omeprazole oxyBUTYnin Chloride ER 5 MG Tablet Extended Release 24 Hour TK 1 T PO QD Oral Zinc Medication List reviewed and reconciled with the patientTaking Calcium Taking Centrum Adults Taking Fish Oil Taking Glucosource Lancets Taking Meloxicam 7.5 MG Tablet 1 tablet Orally Once a dayTaking Metoprolol Succinate 100 MG Capsule ER 24 Hour Sprinkle 1 capsule Orally Once a dayTaking Magnesium Taking Omeprazole Taking oxyBUTYnin Chloride ER 5 MG Tablet Extended Release 24 Hour TK 1 T PO QD Oral Taking Zinc Medication List reviewed and reconciled with the [...] distal, B/L.?HAIR GROWTH/TEXTURE/ELASTICITY/TURGOR:? decreased, B/L.?PIGMENTATION:? cyanotic, B/L.?EDEMA:? 1/4, B/L, Feet, Ankle(s), Leg(s).?Dermatologic: ?SKIN FINDINGS:?Skin exam reveals Keratotic lesion(s) located at, Medial plantar, IPJ, TA, T4, Medial, DIPJ, T6, Plantar, T7.?Orthopedic: ?MUSCLE STRENGTH:?5/5 all groups in a symmetrical [...] TA, T2, T3, T4, T, T6, T7, T9.?Abscess/infected nail: ?INSPECTION? Reveals nail incurvation, pain on palpation, groove laceration, inflammation, malodor, localized cellulitis, and purulent abscess with pre- operative size of approximately ( 1-2 ) mm square without exposed bone, Medial nail border, T5.? Assessment: * Assessment: 1.?Tinea unguium - B35.1 (Pr imary)?2.?Pain in right toe(s) - M79.674?3.?Pain in left toe(s) - M79.675?4.?Other hammer toe(s) (acquired), right foot - M20.41?5.?Other hammer toe(s) (acquired), left foot - M20.42?6.?Hallux rigidus, right foot - M20.21?7.?Hallux valgus (acquired), left foot - M20.12?8.?Unspecified atherosclerosis of [place] arteries of extremities, bilateral legs - I70.203?9.?Tinea pedis - B35.3 10.?Cellulitis of right toe - L03.031?11.?Cutaneous abscess of right foot - L02.611? Plan: * Treatment: * Procedures:?Debride Nail 6-10:?Nail debridement?Nail debridement performed extensively to reduce/remove overall nail length and girth, subungual debris, and necrotic tissue, by manual and electrical means with use of a nail nipper and/or dremel, to more viable healthy nail plate or bed tissue 6-10. Silver nitrate used for any petechial bleeding as necessary. Patient chooses, no pharmaceutical tx (86946).?Keratoma Treatment:?Parring or Cutting of Benign Hyperkeratotic Lesion(s)?19754 (2-4 Lesions) - The Benign hyperkeratotic lesions, as described above were pared, and/or cut utilizing a sterile #15 blade, tissue nippers, and/or dremel, Q8.?Abscess incision and drainage:?Location?Medial nail border, T5.?Anesthesia?2% Lidocaine local anesthesic.?Procedure?A fine sterile elevator was used to loosen the eponychium, nail bed, nail plate and groove. A sterile nail splinter was then used to longitudinally section the nail. This section was removed. Any infected, devitilized or granulation tissue was removed. No underlying bone was identified. Bacitracin and sterile dressings applied, local wound care instructions were dispensed. Patient was informed of both conservative and future surgical procedures to prevent recurrence.? * Procedure Codes:?53894 DRAIN AGE OF SKIN [id number] DEBRIDE NAIL, 6 OR MORE, Modifiers: XS 01367 TRIM SKIN LESIONS, 2 TO 4, Modifiers: Q8 * Preventive Medicine:? ??Counseling:?Discussion:?-14: Office or other outpatient visit for the evaluation and management of an established patient, which required a medically appropriate history and/or examination and MODERATE level of DECISION MAKING for: 1 OR MORE CHRONIC PROBLEM(S) THATS WORSENING, 2 STABLE CHRONIC PROBLEMS, A NEWLY DIAGNOSED PROBLEM WITH UNCERTAIN PROGNOSIS, AN ACUTE COMPLICATED INJURY WITH MULTIPLE TREATMENT OPTIONS, OR AN ACUTE PROBLEM WITH ACCOMPANYING SYSTEMIC SYMPTOMS, THAT POSE(S) A MODERATE RISK OF MORBIDITY. THIS CONDITION MAY ALSO INCLUDE RX DRUG MANAGEMENT, OR A DECISON FOR MINOR SURGERY. The visit on the day of the encounter encompassed interpreting the data and educating the patient as to the nature of their condition, treatment options available according to their individual PMH, meds, allergies, and overall health/living conditions, as well as any potential risks or complications that may occur from a failure to adhere to, and participate in, the recommended course of therapy. The discussion included a complete verbal, and/or written explanation of the examination results, any x-rays taken, the proposed diagnosis, and outline of the treatment plan. A schedule for future care needs was also explained. The patient verbalized an understanding of the instructions at this time and agreed to be an active participant in their treatment. If the patient should think of any questions or concerns after the visit, I have encouraged the patient to call the office.?Cellulitis/Lymphangitis?The patient was counseled on the diagnosis, etiology, treatment options, and importance for adherence to recommendations regarding the treatment for Cellulitis. Abx were Rxed to address the cellulitis. The advantages and disadvantages of an antibiotic medication, along with its side effects, were discussed with the patient to their comprehended satisfaction. Patient questions re: use, dosage, and possible pharmacutical interactions were reviewed and the answers clearly understood. If the condition should worsen while taking the antibiotics as directed, it was recommeded that the patient call the office immediately or seek emergency medical care. The patient verbally confirmed a full understanding of the above information, Rxed Abx.? * Follow Up:?3 Months * Images: * Sign off status: Completed true * Provider:?Anton Akins DPM Date:? 024 Generated for Vicki castañeda/Debbie/Stacey on:?10/27/2024 06:50 AM EST History and Physical Notes * HPI (History of Present Illness) Category Sub-Category Detail Notes Category Not es Painful Nails Pt States Last PCP Visit: Date:: 05/26/2024 Skin problems Nature: bleeding, rednes s, tender, swelling Location: Right , 1st Duration: a month Onset/Cause: unknown Course: worse Aggravated by: any pressure, shoege ar Examination Category Sub-Category Detail Notes Category Not es Neurological SENSORY: Neurological exa m reveals intact sensorium, pain sensation normal, vibration sensation intact, pinprick sensation is normal in the lower extremities, Pt denies, anesthesia, burning, paresthesia, tingling, B/L BABINSKI REFLEX: absent Dermatologic SKIN FINDINGS: Skin exam reveal s Keratotic lesion(s) located at, Medial plantar, IPJ, TA, T4, Medial, DIPJ, T6, Plantar, T7 Orthopedic GAIT ABNORMALITY: pronated, abducted, B/L BUNION: [...] T2, T3, T4, T, T6, T7, T9 Abscess/infected nail INSPECTION Reveals nail incurvation, pa in on palpation, groove laceration, inflammation, malodor, localized cellulitis, and purulent abscess with pre-operative size of approximately ( 1-2 ) mm square without exposed bone, Medial nail border, T5
[2024-10-27 09:51] LABS: MANUAL DIFF FLAG NO
[2024-10-27 10:02] LABS: Basophils Absolute Auto 0.1 X10*3/uL (0.0-0.2); Basophils Percent Auto 0.9 % (0-2); Eosinophils Absolute Auto 0.1 X10*3/uL (0.0-0.4); Eosinophils Percent Auto 1.6 % (0-4); Hematocrit 36.8 % (37.0-47.0); Hemoglobin 12.3 g/dl (12.0-16.0); Imm Gran Abs Auto 0.02 X10*3/uL (0.00-0.03); Imm Gran Pct Auto 0.3 % (0.0-0.4); Lymphocytes Absolute Auto 1.4 X10*3/uL (1.2-4.9); Lymphocytes Percent Auto 20.3 % (20-40); Mean Corpuscular HGB Conc 33.4 g/dl (31.0-35.0); Mean Corpuscular Hemoglobin 31.6 pg (27.0-33.0); Mean Corpuscular Volume 94.6 fL (80.0-98.0); Mean Platelet Volume 9.3 fL (9.4-12.3); Monocytes Absolute Auto 0.5 X10*3/uL (0.1-1.2); Monocytes Percent Auto 7.8 % (2-11); Neutrophils Absolute Auto 4.8 x10*3/uL (2.0-8.3); Neutrophils Percent Auto 69.1 % (45-73); Platelet Count 243 X10*3/uL (160-400); Red Blood Count 3.89 X10*6/uL (4.20-5.50); Red Cell Distribution Width 11.9 % (11.0-16.0); White Blood Count 6.9 X10*3/uL (4.8-10.8)
[2024-10-27 10:09] LABS: Estimated Average Glucose 120 mg/dL; Hemoglobin A1C 129.0803 umol/L; Hemoglobin A1c % 5.8 % (<6.0); Total Hemoglobin (HGBA1C) 3257.3566 umol/L
[2024-10-27 10:15] LABS: Alanine Aminotransferase 20 U/L (0-31); Albumin Level 3.8 g/dL (3.5-5.0); Alkaline Phosphatase 95 U/L (39-117); Anion Gap 12 (12-20); Aspartate Amino Transferase 23 U/L (5-31); Bilirubin Total 0.3 mg/dL (0.0-1.0); Blood Urea Nitrogen 31 mg/dL (9-16); Calcium 9.6 mg/dL (8.4-10.2); Carbon Dioxide 27 mmol/L (22-29); Chloride 105 mmol/L (96-108); Estimated Glomerular Filt Rate 36; Glucose Fasting 101 mg/dL (60-99); Potassium 4.3 mmol/L (3.3-5.1); Sodium 140 mmol/L (135-145); Total Protein 7.1 g/dL (6.5-8.0)
[2024-10-27 10:33] LABS: TSH reflex Free T4 0.19 uIU/mL (0.32-4.0)
[2024-10-27 11:18] LABS: Free T4 (Free Thyroxine) 1.17 ng/dL (0.71-1.85)
[2024-10-28 20:24] LABS: Triiodothyronine T3 Free 3.4 pg/mL (2.3-4.2)
== END 2024-10-27 06:50 | disposition home or self-care (01) ==
LOC: HO.HMGCLDS 06:49
PROVIDERS: PCP Internal Medicine; Visit Provider Internal Medicine
DX: I48.91 Unspecified atrial fibrillation (principal); D64.9 Anemia, unspecified; E55.9 Vitamin D deficiency, unspecified; N18.30 Chronic kidney disease, stage 3 unspecified; I10 Essential (primary) hypertension; Z13.1 Encounter for screening for diabetes mellitus
CPT/HCPCS: 36415; 80053; 83036; 84439; 84443; 84481; 85025

== ENCOUNTER 2024-11-01 07:56 | Outpatient (AMB) | payer OTHER, SELFPAY ==
[2024-11-01 08:12] VITALS: BP 108/70; PULSE 49; O2SAT 97; BMI 35.5
--- NOTE | 2024-11-01 08:12 | A.OFFPC_ITS ---
Vital Signs 11/01/24 08:12 Height 5 ft Weight 182 lb BMI 35.5 BP 108/70 Blood Pressure Location Rt brachial Position Sitting Pulse 49 L Pulse Source Pulse Oximeter Pulse Oximetry (%) 97 Oxygen Delivery Method Room Air Intake Visit Reasons: Annual PE Intake Note: Pt is here today for PE. Allergies aspirin Allergy (Unknown, Verified 11/01/24 08:15) Facial Swelling Medication List - Last Reconciled 11/01/24 by Penny Orellana MD Eliquis (apixaban) 2.5 mg PO BID NS estradiol 0.01%(0.1mg/gram) pea size to urethra vaginally daily; glucosamine HCl 1,000 mg PO DAILY hydrochlorothiazide 25 mg PO DAILY irbesartan 300 mg PO DAILY meclizine 25 mg PO BID metoprolol succinate ER 50 mg PO DAILY oxybutynin chloride ER 5 mg PO DAILY Tobacco use date assessed: 11/01/24 Fall risk assessment: No Falls in past year Last assessed Fall Risk: 11/01/24 Dental Screening Dental Screen Date: 11/01/24 Did you have a dental visit in the last 12 months?: No Did you have a dental problem in the last 6 months where you did not have access to dental care?: No Was dental information given to patient?: Patient declined HPI Annual PE HPI Details Pt presents for PE. [facility] Medical History Bilateral hand pain Dysuria CKD (chronic kidney disease) stage 3, GFR 30-59 ml/min Bilateral carotid bruits Subconjunctival bleed Vertigo HTN (hypertension) Osteoarthritis Hyperlipidemia Vitamin D deficiency Hyperparathyroidism Goiter Surgical History H/O parathyroidectomy History of knee replacement Family History Father No problems noted. Mother No problems noted. Social History Housing: House Alcohol intake: never Patient Tobacco Use Status: Never used Tobacco e-Cigarette/Vaping Use: Never Used service: No Current occupational status: retired Cognitive needs: No Hearing needs: No Vision needs: Yes Questionnaire PHQ-9 Over the last 2 weeks, how often have you been bothered by any of the following problems? 1. Little interest or pleasure in doing things: not at all 2. Feeling down, depressed, or hopeless: not at all 3. Trouble falling or staying asleep, or sleeping too much: not at all 4. Feeling tired or having little energy: not at all 5. Poor appetite or overeating: not at all 6. Feeling bad about yourself - or that you are a failure or have let yourself or your family down: not at all 7. Trouble concentrating on things, such as reading the newspaper or watching television: not at all 8. Moving or speaking so slowly that other people could have noticed. Or the opposite - being so fidgety or restless that you have been moving around a lot more than usual: not at all 9. Thoughts that you would be better off or of hurting yourself in some way: not at all Total score: 0 Depression Screening Interpretation: Negative Depression Screening Done: Yes 29028 - PHQ-9 Billing: Yes Source: Developed by Drs. Cristian Patiño, Edwige Sanchez, Tyson Herman and colleagues, with an educational hemanth from [employer]. Thrive Questionnaire Date Thrive assessed: 11/01/24 I am a: Patient What is your living situation today?: I choose not to answer this question Within the past 12 months, did the food you bought not last and you didn't have the money to get more?: I choose not to answer this question Within the past 12 months, did you worry whether your food would run out before you got money to buy more?: I choose not to answer this question Do you have trouble paying for medicines?: I choose not to answer this question Do you have trouble getting transportation to medical appointments?: I choose not to answer this question Do you have trouble paying your heating and electricity bill?: I choose not to answer this question Do you have trouble taking care of your child, family member or friend?: I choose not to answer this question Do you have trouble with day-to-day activities such as bathing, preparing meals, shopping, managing finances, etc.?: I choose not to answer this question Are you currently unemployed and looking for a job?: I choose not to answer this question Are you interested in more education?: I choose not to answer this question Please select the resources that you would like help with: None Currently or been in a relationship where the following occur: I choose not to answer THRIVE Score: 0 AUDIT C Alcohol Use Questionnaire (AUDIT-C) 1. How often do you have a drink containing alcohol?: Never 3. How often do you have six or more drinks on one occasion?: Never Total Score: 0 PAMELLA-7 AMB Questionnaire PAMELLA-7 Date PAMELLA - 7 assessed: 11/01/24 Feeling nervous, anxious, or on edge: 0 = Not at all Not being able to stop or control worryin = Not at all Worrying too much about different things: 0 = Not at all Trouble relaxin = Not at all Being so restless that it is hard to sit still: 0 = Not at all Becoming easily annoyed or irritable: 0 = Not at all Feeling afraid as if something awful might happen: 0 = Not at all Total PAMELLA-7 score (0-4 normal; 5-9 mild; 10-14 moderate; 15-21 severe): 0 Source: Developed by Drs. Cristian Patiño, Edwige Sanchez, Tyson Herman and colleagues, with an educational hemanth from [employer]. PAMELLA-7 Assessment Billing PAMELLA-7 Assessment Tool: PAMELLA-7 Assessment 82275 Review of Systems Const All systems reviewed & are unremarkable except as noted in HPI and below Reports no additional complaints Eyes Reports no additional complaints ENT Reports no additional complaints Card Reports no additional complaints Resp Reports no additional complaints GI Reports no additional complaints Reports no additional complaints Physical exam (Primary Care) Vital Signs: Last Vital Signs Pulse 49 L 11/01/24 08:12 BP 108/70 11/01/24 08:12 Pulse Ox 97 11/01/24 08:12 Oxygen Delivery Method Room Air 11/01/24 08:12 BMI result Body Mass Index 35.5 Tobacco/Smoking Status: Tobacco use Status Tobacco use date assessed 11/01/24 11/01/24 08:19 Patient Tobacco Use Status Never used Tobacco 11/01/24 08:14 e-Cigarette/Vaping Use Never Used 11/01/24 08:14 PHQ-9: PHQ-9 Score PHQ-9: Total score 0 11/01/24 08:20 Depression Screening Interpretation: Negative Thrive Assessment: Date of Thrive Assessment Date Thrive assessed 11/01/24 11/01/24 08:19 Currently or been in a relationship where the following occur: I choose not to answer Const General: no acute distress HENMT Head: Yes normal to inspection Ears: TM's normal bilaterally Mouth: Normal oral and palatal mucosa present Eyes General: appearance normal, both eyes and all related structures Neck Neck: Yes no lymphadenopathy and Yes supple Resp Effort & Inspection: normal respiratory effort Auscultation: clear to auscultation bilaterally Cardio Rhythm: regular rhythm Heart sounds: S1 normal heart sound present and S2 normal heart sound present GI Inspection: Yes normal to inspection Palpation (GI): Soft to palpation Percussion: Yes normal to percussion Auscultation: normal bowel sounds Coding Level of Care Code Est Pt Prev Care >65y(95164) Diagnoses Hyperglycemia R73.9 A-fib I48.91 Annual physical exam Z00.00 Hyperlipidemia E78.5 CKD (chronic kidney disease) stage 3, GFR 30-59 ml/min N18.30 HTN (hypertension) I10 Additional Codes PAMELLA-7 Assessment Billing - PAMELLA-7 Assessment Tool: PAMELLA-7 Assessment 85795 ([id number]) PHQ-9 - 52007 - PHQ-9 Billing: Yes ([id number]) Assessment & Plan Assessment & Plan (1) Hyperglycemia: Code(s): R73.9 - Hyperglycemia, unspecified Category: Medical Plan: Continue ADA diet monitor A1c (2) A-fib: Comment: paroxysmal ,Holter negative and ECHO EF 56%, mild 06/2024 Code(s): I48.91 - Unspecified atrial fibrillation Category: Medical Plan: Continue metoprolol and Eliquis (3) Annual physical exam: Code(s): Z00.00 - Encounter for general adult medical examination without abnormal findings Category: Medical Plan: Well-balanced diet regular physical activity discussed with the patient (4) Hyperlipidemia: Code(s): E78.5 - Hyperlipidemia, unspecified Category: Medical Plan: Low-cholesterol diet (5) CKD (chronic kidney disease) stage 3, GFR 30-59 ml/min: Code(s): N18.30 - Chronic kidney disease, stage 3 unspecified Category: Medical Plan: Monitor renal function avoid nephrotoxins (6) HTN (hypertension): Code(s): I10 - Essential (primary) hypertension Category: Medical Plan: Medications Orders: Orders TSH reflex Free T4 6 Months I10 - Essential (primary) hypertension, I48.91 - Unspecified atrial fibrillation, R73.9 - Hyperglycemia, unspecified, Z00.00 - Encounter for general adult medical examination without abnormal findings Triiodothyronine T3 Free 6 Months I10 - Essential (primary) hypertension, I48.91 - Unspecified atrial fibrillation, R73.9 - Hyperglycemia, unspecified, Z00.00 - Encounter for general adult medical examination without abnormal findings Hemoglobin A1c 6 Months I10 - Essential (primary) hypertension, I48.91 - Unspecified atrial fibrillation, R73.9 - Hyperglycemia, unspecified, Z00.00 - Encounter for general adult medical examination without abnormal findings Comprehensive [place]. Panel Fast 6 Months I10 - Essential (primary) hypertension, I48.91 - Unspecified atrial fibrillation, R73.9 - Hyperglycemia, unspecified, Z00.00 - Encounter for general adult medical examination without abnormal findings Complete Blood Count Auto Diff 6 Months I10 - Essential (primary) hypertension, I48.91 - Unspecified atrial fibrillation, R73.9 - Hyperglycemia, unspecified, Z00.00 - Encounter for general adult medical examination without abnormal findings Medications: Changed From apixaban (Eliquis) 2.5 mg PO BID 180 tabs 1RF To Eliquis (apixaban) 2.5 mg PO BID 180 tabs 3RF NS
== END 2024-11-01 11:26 | disposition home or self-care (01) ==
PROVIDERS: PCP Internal Medicine; Visit Provider Internal Medicine
DX: Z00.00 Encounter for general adult medical examination without abnormal findings (principal); I12.9 Hypertensive chronic kidney disease with stage 1 through stage 4 chronic kidney disease, or unspecified chronic kidney disease; N18.30 Chronic kidney disease, stage 3 unspecified; I48.91 Unspecified atrial fibrillation; R73.9 Hyperglycemia, unspecified; E78.5 Hyperlipidemia, unspecified

== ENCOUNTER → 2024-11-01 07:56 | Outpatient (BNVA) | payer OTHER, SELFPAY | PROVIDERS: PCP Internal Medicine; Visit Provider Internal Medicine | DX: Z00.00 Encounter for general adult medical examination without abnormal findings (principal); R73.9 Hyperglycemia, unspecified; I48.91 Unspecified atrial fibrillation; E78.5 Hyperlipidemia, unspecified; I12.9 Hypertensive chronic kidney disease with stage 1 through stage 4 chronic kidney disease, or unspecified chronic kidney disease; N18.30 Chronic kidney disease, stage 3 unspecified | CPT/HCPCS: 96127; 99397 ==

== ENCOUNTER 2024-12-19 09:44 | Outpatient (AMB) | payer OTHER, SELFPAY ==
[2024-12-19 09:51] VITALS: BP 110/68; PULSE 85; TEMP 37.1; O2SAT 98; BMI 35.2
--- NOTE | 2024-12-19 09:51 | A.OFFPC_ITS ---
Vital Signs 12/19/24 09:51 Height 5 ft Weight 180 lb BMI 35.2 BP 110/68 Blood Pressure Location Rt brachial Position Sitting Pulse 85 Pulse Source Pulse Oximeter Temp 98.8 F Temp Source Oral Pulse Oximetry (%) 98 Oxygen Delivery Method Room Air Intake Visit Reasons: flu symptoms/bad cough Intake Note: Pt is here today for a sick visit. Pt c/o cough, congestion. Allergies aspirin Allergy (Unknown, Verified 12/19/24 09:57) Facial Swelling Medication List - Last Reconciled 12/19/24 by Penny Orellana MD azithromycin For 250 mg dose pack: take 500 mg today (day 1), then 250 mg for 4 days (days 2-5) PO Eliquis (apixaban) 2.5 mg PO BID NS estradiol 0.01%(0.1mg/gram) pea size to urethra vaginally daily; glucosamine HCl 1,000 mg PO DAILY hydrochlorothiazide 25 mg PO DAILY irbesartan 300 mg PO DAILY meclizine 25 mg PO BID metoprolol succinate ER 50 mg PO DAILY oxybutynin chloride ER 5 mg PO DAILY Tobacco use date assessed: 11/01/24 Dental Screening Dental Screen Date: 11/01/24 HPI flu symptoms/bad cough HPI Details Pt c/o 2 weeks productive cough, green sputum, low-grade fever body aches and had stomach upset with diarrhea for 2 days. Patient denies chest pain palpitations pleurisy hypertension is controlled on current medications [facility] Medical History Bilateral hand pain Dysuria CKD (chronic kidney disease) stage 3, GFR 30-59 ml/min Bilateral carotid bruits Subconjunctival bleed Vertigo HTN (hypertension) Osteoarthritis Hyperlipidemia Vitamin D deficiency Hyperparathyroidism Goiter Surgical History H/O parathyroidectomy History of knee replacement Family History Father No problems noted. Mother No problems noted. Social History Housing: House Alcohol intake: never Patient Tobacco Use Status: Never used Tobacco e-Cigarette/Vaping Use: Never Used service: No Current occupational status: retired Cognitive needs: No Hearing needs: No Vision needs: Yes Questionnaire Thrive Questionnaire Date Thrive assessed: 11/01/24 PAMELLA-7 AMB Questionnaire PAMELLA-7 Date PAMELLA - 7 assessed: 11/01/24 Source: Developed by Drs. Cristian Patiño, Edwige Sanchez, Tyson Herman and colleagues, with an educational hemanth from [employer]. Review of Systems Const All systems reviewed & are unremarkable except as noted in HPI and below Eyes Reports no additional complaints ENT Reports no additional complaints Card Reports no additional complaints Resp Reports no additional complaints GI Reports no additional complaints Physical exam (Primary Care) Vital Signs: Last Vital Signs Temp 98.8 F 12/19/24 09:51 Pulse 150 H 12/19/24 09:51 BP 110/68 12/19/24 09:51 Pulse Ox 98 12/19/24 09:51 Oxygen Delivery Method Room Air 12/19/24 09:51 BMI result Body Mass Index 35.2 Tobacco/Smoking Status: Tobacco use Status Tobacco use date assessed 11/01/24 12/19/24 09:59 Patient Tobacco Use Status Never used Tobacco 12/19/24 09:59 e-Cigarette/Vaping Use Never Used 12/19/24 09:59 Thrive Assessment: Date of Thrive Assessment Date Thrive assessed 11/01/24 12/19/24 09:59 Const General: no acute distress HENMT Head: Yes normal to inspection Ears: TM's normal bilaterally Face and sinus: Yes sinus tenderness Throat: Yes posterior oropharynx normal Eyes General: appearance normal, both eyes and all related structures Neck Neck: Yes no lymphadenopathy and Yes supple Resp Effort & Inspection: normal respiratory effort Auscultation: rhonchi and diminished lung sounds on the right Cardio Rhythm: regular rhythm Heart sounds: S1 normal heart sound present and S2 normal heart sound present Coding Level of Care Code Est Pt Level 3 (38844) Diagnoses Bronchitis J40 HTN (hypertension) I10 A-fib I48.91 Assessment & Plan Assessment & Plan (1) Bronchitis: Code(s): J40 - Bronchitis, not specified as acute or chronic Category: Medical Plan: Z-Omi as prescribed and supportive care discussed with the patient (2) HTN (hypertension): Code(s): I10 - Essential (primary) hypertension Category: Medical Plan: Continue current medications (3) A-fib: Comment: paroxysmal ,Holter negative and ECHO EF 56%, mild 06/2024 Code(s): I48.91 - Unspecified atrial fibrillation Category: Medical Plan: Continue current medications Medications: New azithromycin For 250 mg dose pack: take 500 mg today (day 1), then 250 mg for 4 days (days 2-5) PO 6 tabs 0RF
== END 2024-12-19 10:39 | disposition home or self-care (01) ==
LOC: HO.HMCC 09:44
PROVIDERS: PCP Internal Medicine; Visit Provider Internal Medicine
DX: J40 Bronchitis, not specified as acute or chronic (principal); I10 Essential (primary) hypertension; I48.91 Unspecified atrial fibrillation